=== PATIENT | female | born 1935 | race Caucasian/White ===

== ENCOUNTER 2017-08-16 02:59 | Inpatient (IN) ==
[2017-08-16] MEDS ORDERED: Azithromycin 500 MG in D5% in Water 250 ML IVPB ONE (03:02)
[2017-08-16] MEDS ORDERED: Ipratropium/Albuterol Neb 3 ML IH ONE (03:02)
[2017-08-16] MEDS ORDERED: methylPREDNISolone 125 MG/2 ML VIAL IVP ONE (03:02)
--- NOTE | 2017-08-16 03:04 | Emergency Department Note ---
Disposition Clinical Impression: Acute exacerbation of chronic obstructive airways disease, Congestive heart failure, Anemia, Hyponatremia, CKD (chronic kidney disease) Disposition: Admitted As Inpatient Condition: Fair Time of Disposition: 04:12 SOB HPI - General Stated Complaint: Difficulty Breathing Time Seen by Provider: 08/16/17 03:00 Source: patient, EMS Mode of arrival: EMS Limitations: age Nursing Notes Reviewed: Yes Vital Signs Reviewed: Yes - History of Present Illness Pt Subjective Complaint: shortness of breath Onset (ago): week(s) (2) Context: recent illness Severity: moderate Consistency/Duration: gradually worsening Improves with: nothing Worsens with: exertion, movement Associated symptoms: Reports: cough, wheezing, sputum production. Denies: chest pain, pain with inspiration, fever, orthopnea, lower extremity pain, polyuria, parasthesias, palpitations, hemoptysis, diaphoresis, nausea/vomiting, syncope, abdominal pain, rash, sense of impending doom Treatment prior to arrival: oxygen, bronchodilator Cough present: Yes Cough Description: Weak, Bronchospastic Cough Frequency: Intermittent Sputum production: No Sputum Amount: None Sputum Color: Yellow, Green - Related Data Home Medications Medication Instructions Recorded Confirmed Albuterol Sulfate [Proair Hfa] 2 aerosol .ROUTE Q4H PRN 03/03/15 08/16/17 Aspirin Enteric Coated [Aspirin EC] 81 mg PO DAILY 03/03/15 08/16/17 Cholecalciferol (Vitamin D3) 2,000 unit PO BID 03/03/15 08/16/17 [Vitamin D] Insulin ASPART [NovoLOG] 15 unit SQ BID 03/03/15 08/16/17 Levothyroxine [Synthroid] 75 mcg PO 0630 03/03/15 08/16/17 Losartan [Cozaar] 50 mg PO BID 03/03/15 08/16/17 Nitroglycerin 0.4 mg SL Q5MIN PRN 03/03/15 08/16/17 Oxycodone HCl/Acetaminophen 1 each PO Q6-8H PRN 03/03/15 08/16/17 [Percocet 5-325 mg Tablet] Atorvastatin Calcium [Lipitor] 40 mg PO DAILY 08/12/17 08/16/17 Furosemide [Lasix] 40 mg PO BID 08/12/17 08/16/17 Hydralazine HCl 25 mg PO TID 08/12/17 08/16/17 Isosorbide MONOnitrate [Isosorbide 60 mg PO DAILY 08/12/17 08/16/17 Mononitrate ER] Potassium Chloride [K-Tab ER] 20 meq PO TID 08/12/17 08/16/17 Carvedilol [Coreg] 6.25 mg PO BIDWM 08/16/17 08/16/17 Previous Rx's Medication Instructions Recorded Benzonatate [Tessalon] 200 mg PO Q4-6H PRN #30 capsule 08/12/17 Allergies Allergy/AdvReac Type Severity Reaction Status Date / Time acetaminophen [From [place]] Allergy See Verified 08/16/17 03:07 Comments adhesive tape Allergy Blister Verified 08/16/17 03:07 hydrocodone [From [place]] Allergy See Verified 08/16/17 03:07 Comments iron Allergy Hives Verified 08/16/17 03:07 latex Allergy Blister Verified 08/16/17 03:07 Penicillins Allergy Nausea Verified 08/16/17 03:07 Sulfa (Sulfonamide Allergy Nausea Verified 08/16/17 03:07 Antibiotics) zinc Allergy Blister Verified 08/16/17 03:07 All systems ED: reviewed and negative except as stated. Review of Systems: As Per HPI Constitutional: Denies: fever, chills, weakness Eyes: Denies: eye pain, eye discharge, vision change ENT ED: Reports: congestion. Denies: ear pain, throat pain, dental pain, dysphagia, other Cardiovascular: Denies: chest pain, palpitations, dyspnea on exertion Respiratory: Reports: cough, dyspnea, wheezes, sputum production Gastrointestinal: Denies: abdominal pain, nausea, vomiting Genitourinary: Denies: urgency, dysuria, frequency Musculoskeletal: Denies: back pain, neck pain, joint swelling Integumentary: Denies: rash, abrasion, lesions Neurological: Denies: headache, weakness, abnormal gait Psychiatric: Denies: anxiety, depression Endocrine: Denies: fatigue, heat or cold intolerance Hematological/Lymphatic: Denies: easy bleeding Allergic/Immunologic: Denies: facial swelling Past Medical History - Past Medical History Attestation: Yes The following information was validated with the patient. Source: patient, old records reviewed, nursing notes reviewed Medical history: Reports: atrial fibrillation, cancer, cardiomyopathy, CHF, COPD , diabetes, GI bleed, hypertension, myocardial infarction, osteoporosis, thyroid disease, other Surgical history: Reports: cancer surgery, coronary bypass (CABG), hysterectomy , orthopedic, other, other Psychiatric history: Reports: no psych history TOOL ANALYST history: Reports: no TOOL ANALYST history - Social History Smoking Status: Never smoker Smokeless Tobacco Status: No Alcohol use: Reports: none Drug use: Reports: none Course Course Narrative: Seen and examined chest x-ray EKG laboratory data was ordered patient was given additional DuoNeb to see if this would help break her up she still very tight and wheezy anabolic Solu-Medrol were started - Reevaluation(s) Reevaluation #1: Spoke with the patient she agreed with admission for further management to help get her respiratory cleared up but also spoke with Dr. Cantu the hospitalist and he is agreed for admission patient will be transferred to [facility] telemetry services for further care management antibiotics and slight diuresis Vital Signs Temperature 98.1 F 08/16/17 02:59 Pulse Rate 97 08/16/17 02:59 Respiratory Rate 22 08/16/17 02:59 Blood Pressure 160/76 08/16/17 02:59 O2 Sat by Pulse Oximetry 92 08/16/17 02:59 Temperature 98.1 F 08/16/17 02:59 Pulse Rate 93 08/16/17 04:25 Respiratory Rate 20 08/16/17 04:25 Blood Pressure 128/53 08/16/17 04:25 O2 Sat by Pulse Oximetry 92 08/16/17 04:25 Oxygen Delivery Oxygen Delivery Room Air Shortness of Breath/Dyspnea - Differential Diagnosis Likely: acute exacerbation of chronic obstructive airways disease, congestive heart failure, pneumonia, asthma with exacerbation - Medical Records Medical records reviewed: Yes I reviewed the patient's medical records. - Lab Data Lab results reviewed: Yes I reviewed the patient's lab results. Result diagrams: 08/16/17 03:40 08/16/17 03:40 Lab Results 08/16/17 08/16/17 08/16/17 Range/Units 03:40 03:40 03:40 WBC 6.3 (4.3-11.1) K/mcL RBC 3.24 L (3.82-4.97) M/mcL Hgb 8.8 L (11.5-15.4) g/dL Hct 28.2 L (35.3-44.9) % MCV 87.0 (83.0-100.0) fL MCH 27.2 L (28.0-33.3) pg MCHC 31.2 L (31.6-35.5) g/dL RDW 14.5 (11.5-14.5) % Plt Count 299 (140-400) K/mcL MPV 9.6 (9.4-12.4) fL Immature Gran % 1.1 (0-4) % Seg Neutrophils % 72.9 % Lymphocytes % 14.5 % Monocytes % 6.1 % Eosinophils % 4.9 % Basophils % 0.5 % Neutrophils # 4.6 (1.6-8.9) K/mcL Lymphocytes # 0.9 (0.6-4.6) K/mcL Monocytes # 0.4 (0.0-1.3) K/mcL Eosinophils # 0.3 (0.0-0.6) K/mcL Basophils # 0.0 (0.0-0.2) K/mcL PT (9.4-12.1) Seconds INR APTT 31.4 (26.0-36.0) Seconds Sodium (136-145) mEq/L Potassium (3.5-5.1) mEq/L Chloride (98-107) mEq/L Carbon Dioxide (23-29) mEq/L BUN (8-23) mg/dL Creatinine (0.60-1.20) mg/dL Est GFR ( Amer) (> 60) Est GFR (Non-Af Amer) (> 60) BUN/Creatinine Ratio (6-26) Glucose (70-105) mg/dL Calculated Osmolality (280-300) Lactic Acid (0.5-2.2) mmol/L Calcium (8.6-10.3) mg/dL Total Bilirubin (0.3-1.0) mg/dL AST (13-39) Units/L ALT (7-52) Units/L Alkaline Phosphatase (34-104) Units/L Troponin I (< 0.04) ng/mL B-Natriuretic Peptide 232 H (Less than 100) pg/mL Serum Total Protein (6.4-8.9) g/dL Albumin (3.5-5.7) g/dL Globulin (2.4-3.5) g/dL Albumin/Globulin Ratio (1.1-2.2) 08/16/17 08/16/17 08/16/17 Range/Units 03:40 03:40 03:40 WBC (4.3-11.1) K/mcL RBC (3.82-4.97) M/mcL Hgb (11.5-15.4) g/dL Hct (35.3-44.9) % MCV (83.0-100.0) fL MCH (28.0-33.3) pg MCHC (31.6-35.5) g/dL RDW (11.5-14.5) % Plt Count (140-400) K/mcL MPV (9.4-12.4) fL Immature Gran % (0-4) % Seg Neutrophils % % Lymphocytes % % Monocytes % % Eosinophils % % Basophils % % Neutrophils # (1.6-8.9) K/mcL Lymphocytes # (0.6-4.6) K/mcL Monocytes # (0.0-1.3) K/mcL Eosinophils # (0.0-0.6) K/mcL Basophils # (0.0-0.2) K/mcL PT 12.1 (9.4-12.1) Seconds INR 1.1 APTT (26.0-36.0) Seconds Sodium 129 L (136-145) mEq/L Potassium 4.1 (3.5-5.1) mEq/L Chloride 93 L (98-107) mEq/L Carbon Dioxide 27 (23-29) mEq/L BUN 32 H (8-23) mg/dL Creatinine 2.33 H (0.60-1.20) mg/dL Est GFR ( Amer) 24 L (> 60) Est GFR (Non-Af Amer) 20 L (> 60) BUN/Creatinine Ratio 14 (6-26) Glucose 217 H (70-105) mg/dL Calculated Osmolality 281 (280-300) Lactic Acid 0.9 (0.5-2.2) mmol/L Calcium 9.1 (8.6-10.3) mg/dL Total Bilirubin 0.4 (0.3-1.0) mg/dL AST 14 (13-39) Units/L ALT 8 (7-52) Units/L Alkaline Phosphatase 80 (34-104) Units/L Troponin I 0.03 (< 0.04) ng/mL B-Natriuretic Peptide (Less than 100) pg/mL Serum Total Protein 6.8 (6.4-8.9) g/dL Albumin 3.6 (3.5-5.7) g/dL Globulin 3.2 (2.4-3.5) g/dL Albumin/Globulin Ratio 1.1 (1.1-2.2) - Radiology Data Radiology results reviewed: Yes I reviewed the patient's radiology results. ITS Impressions Chest X-Ray 08/16/17 03:01 IMPRESSION: 1. Cardiomegaly with vascular congestion. D/ / Rod Grimaldo MD / Rod Grimaldo MD Interpreting Provider: Rod Grimaldo MD - EKG Data EKG attestation: Yes I reviewed and interpreted this EKG. EKG results narrative: Sinus rhythm with first-degree AV block RI to 24 rate 89 QRS 168 QT 411 since - 79 Critical Care Time Critical Care Time: No
[2017-08-16] MEDS ORDERED: 0.9 % Sodium Chloride 1,000 ML IVC SCH (03:15)
[2017-08-16 03:47] LABS: Basophils % 0.5 %; Eosinophils # 0.3 K/mcL (0.0-0.6); Eosinophils % 4.9 %; Hematocrit 28.2 % (35.3-44.9); Immature Granulocytes % 1.1 % (0-4); Lymphocytes # 0.9 K/mcL (0.6-4.6); Lymphocytes % 14.5 %; Mean Corpuscular HGB Conc 31.2 g/dL (31.6-35.5); Mean Corpuscular Hemoglobin 27.2 pg (28.0-33.3); Mean Platelet Volume 9.6 fL (9.4-12.4); Monocytes # 0.4 K/mcL (0.0-1.3); Monocytes % 6.1 %; Neutrophils # 4.6 K/mcL (1.6-8.9); Platelet Count 299 K/mcL (140-400); Red Blood Count 3.24 M/mcL (3.82-4.97); Red Cell Distribution Width 14.5 % (11.5-14.5); Segmented Neutrophils % 72.9 %
[2017-08-16 03:49] LABS: INR 1.1; Prothrombin Time 12.1 Seconds (9.4-12.1)
[2017-08-16 03:51] LABS: Hemoglobin 8.8 g/dL (11.5-15.4)
[2017-08-16] MEDS ORDERED: Bumetanide 1 MG/4 ML VIAL IVP ONE (03:54)
[2017-08-16 04:04] LABS: Troponin I 0.03 ng/mL (< 0.04)
[2017-08-16 04:05] LABS: Albumin 3.6 g/dL (3.5-5.7); Albumin/Globulin Ratio 1.1 (1.1-2.2); Bilirubin,Total 0.4 mg/dL (0.3-1.0); Calcium 9.1 mg/dL (8.6-10.3); Globulin 3.2 g/dL (2.4-3.5); Potassium 4.1 mEq/L (3.5-5.1); Total Protein 6.8 g/dL (6.4-8.9)
[2017-08-16] MEDS ORDERED: *HR* OxyCODONE/APAP 5/325 TABLET PO ONE (04:19)
[2017-08-16 05:47] LABS: Bilirubin,Urine Negative (Negative); Blood,Urine Negative (Negative); Clarity,Urine Slightly Cloudy (Clear); Color,Urine Yellow (Yellow); Glucose,Urine (UA) Normal (Normal); Ketones,Urine Negative (Negative); Leukocyte Esterase,Urine Moderate (Negative); Nitrite,Urine Negative (Negative); PH,Urine 6.5 pH Units (5.0-8.0); Protein,Urine Trace mg/dL (Neg-Trace); Urobilinogen,Urine Normal (Normal)
[2017-08-16 05:48] LABS: Bacteria,Urine Few per hpf (None-Few); Hyaline Casts,Urine Few per lpf (None-Few); Squamous Epithelial Cell,Urine Few per lpf (None-Few)
[2017-08-16] MEDS ORDERED: Nitroglycerin 0.4 MG TAB.SUBL SL PRN (05:48)
[2017-08-16] MEDS ORDERED: Albuterol 2.5 MG/3 ML NEBULIZER IH PRN (05:48)
[2017-08-16] MEDS ORDERED: Naloxone 0.4 MG/ML INJ IVP PRN (05:48)
[2017-08-16] MEDS: Ipratropium/Albuterol Neb 3 ML IH SCH ×4 (07:01→22:25)
[2017-08-16] MEDS ORDERED: cloNIDine HCl 0.1 MG TABLET PO PRN (07:36)
[2017-08-16] MEDS ORDERED: INSULIN ASPART 15 UNIT SQ SCH (09:00)
[2017-08-16] MEDS: Furosemide 40 MG TABLET PO SCH ×2 (09:38→17:41)
[2017-08-16] MEDS: hydrALAZINE 25 MG TABLET PO SCH ×3 (09:38→22:23)
[2017-08-16] MEDS: Isosorbide MONOnitrate (24 HR) 60 MG TAB.ER.24H PO SCH (09:39)
[2017-08-16] MEDS: Cholecalciferol (D-3) 1,000 UNIT TABLET PO SCH ×2 (09:39→22:24)
[2017-08-16] MEDS: Aspirin Enteric Coated 81 MG Tablet PO SCH (09:40)
[2017-08-16] MEDS: Insulin LISPRO 300 UNITS/3 ML VIAL SQ SCH (09:46)
[2017-08-16] MEDS: *HR* OxyCODONE/APAP 5/325 TABLET PO PRN ×2 (10:55→22:25)
--- NOTE | 2017-08-16 11:16 | Internal Med History&Physical ---
Date of Encounter: 08/16/17 Time of Encounter: 07:45 Assessment and Plan (1) Acute exacerbation of chronic obstructive airways disease Current visit: Yes Status: Acute This is complicated by congestive heart failure. It sounds as if she might have had sinusitis which turned into bronchitis and/or a COPD exacerbation. Will treat her with azithromycin and Rocephin as begun in the emergency department as well as IV steroids. Will follow for another day in determine how long she needs inpatient observation. (2) Congestive heart failure Current visit: Yes Status: Acute Clinically, this is mild. We will follow and will obtain an echocardiogram to see FEF and pressures are similar. Qualifiers: Heart failure type: unspecified Heart failure chronicity: chronic Qualified Code(s): I50.9 - Heart failure, unspecified (3) CKD (chronic kidney disease) Current visit: Yes Status: Acute Apparently stable. We will follow. Qualifiers: Chronic kidney disease stage: unspecified stage Qualified Code(s): N18.9 - Chronic kidney disease, unspecified (4) Anemia Current visit: Yes Status: Acute Apparently chronic. Will follow. Probably secondary to her chronic kidney disease. Qualifiers: Anemia type: due to chronic kidney disease Chronic kidney disease stage: unspecified stage Qualified Code(s): N18.9 - Chronic kidney disease, unspecified; D63.1 - Anemia in chronic kidney disease; D63.1 - Anemia in chronic kidney disease (5) Right upper quadrant abdominal pain Current visit: Yes Status: Acute Gallbladder sludge and stones without cholecystitis. She is awaiting cardiac clearance before she can undergo cholecystectomy. Will follow clinically and enzymes. (6) Constipation Current visit: Yes Status: Acute Chronic. Will keep her on a bowel regimen. Qualifiers: Constipation type: slow transit constipation Qualified Code(s): K59.01 - Slow transit constipation Internal Medicine - H&P: HPI Chief complaint: Shortness of breath Admitted From: Home Plans for Post Hospital Care: Home History of present illness: Ms. Crump is a 81 year old female with a history of atrial fibrillation, coronary artery disease, congestive heart failure. She was in her usual state of health until 2 weeks ago. At that point, she developed a runny nose, sinus congestion, postnasal drip, cough, and increasing shortness of breath. Also at that time, she had an evening with rather severe chest pressure for which she took nitroglycerin 2 and it relieved. Since then, the cough is progressively increased in her drainage has persisted but the cough has become productive of yellow-green phlegm. She is developed more dyspnea on exertion and has had some dyspnea rest. Finally, last evening, she had shortness of breath, even at rest. She was so uncomfortable that she asked to be brought to the emergency room because of her breathing. She has COPD and takes medications and inhalers for same but does not use home oxygen. She had pulmonary functions in June of this year which revealed a worsening DLCO. For this reason, amiodarone was discontinued. She is noted to have thyroid dysfunction but is not certain as to whether or not this relates to amiodarone. She had CABG 3 about 2 years ago. She had her most recent echocardiogram in 2014 which revealed an ejection fraction of 40-45% with LV dilatation and moderately enlarged left atrium. There was moderate mitral regurgitation and [id number] tricuspid regurgitation with moderate pulmonary hypertension. She has chronic low back pain but recently has developed mid back pain and abdominal pain. By CAT scan, she was found to have biliary stones and sludge and she is felt to need her gallbladder removed. However, she is waiting until Dr. Anh will clear her from a cardiology standpoint before she can undergo surgery. By plain films, she was found to have osteoporosis and increased kyphosis of the thoracic spine. She is taking pain meds on a consistent basis because of the back and right upper quadrant abdominal pain. She often has chills but no sweats. The chills preceded her current illness and she believes they are related to her postmenopausal situation. She is status post right mastectomy for breast cancer, 16 years ago. She is known to have chronic kidney disease which is mild, per her. She had harvesting of saphenous vein grafts 3 from her left lower extremity and this is left her with chronic edema. Review of systems is remarkable for having no upper teeth and lower teeth are in poor repair. She is hard of hearing without hearing aids. She is chronically constipated and that has been stable throughout the current illness. Past Med Surg Social Fam HX - Past Medical History Medical history: atrial fibrillation, cancer, cardiomyopathy, CHF, COPD, diabetes, GI bleed, hypertension, myocardial infarction, osteoporosis, RA, renal disease, thyroid disease, other Psychiatric history: no psych history - Past Surgical History Surgical History: cancer surgery, coronary bypass (CABG), hysterectomy, orthopedic, other, other - Social History Smoking Status: Never smoker Smokeless Tobacco Status: No Alcohol use: none Drug use: none - Family History Father Living Status: Hx Family Cardiac Disorders: Yes Mother Living Status: Hx Family Cardiac Disorders: Yes Brother Living Status: Hx Family Cancer: Yes Internal Medicine - H&P: Meds Albuterol Sulfate [Proair Hfa] 2 aerosol .ROUTE Q4H PRN 03/03/15 [History] Aspirin Enteric Coated [Aspirin EC] 81 mg PO DAILY 03/03/15 [History] Cholecalciferol (Vitamin D3) [Vitamin D] 2,000 unit PO BID 03/03/15 [History] Insulin ASPART [NovoLOG] 15 unit SQ BID 03/03/15 [History] Levothyroxine [Synthroid] 75 mcg PO 0630 03/03/15 [History] Losartan [Cozaar] 50 mg PO BID 03/03/15 [History] Nitroglycerin 0.4 mg SL Q5MIN PRN 03/03/15 [History] Oxycodone HCl/Acetaminophen [Percocet 5-325 mg Tablet] 1 each PO Q6-8H PRN 03/03 [History] Atorvastatin Calcium [Lipitor] 40 mg PO DAILY 08/12/17 [History] Benzonatate [Tessalon] 200 mg PO Q4-6H PRN #30 capsule 08/12/17 [Rx] Furosemide [Lasix] 40 mg PO BID 08/12/17 [History] Hydralazine HCl 25 mg PO TID 08/12/17 [History] Isosorbide MONOnitrate [Isosorbide Mononitrate ER] 60 mg PO DAILY 08/12/17 [ History] Potassium Chloride [K-Tab ER] 20 meq PO TID 08/12/17 [History] ALPRAZolam [Xanax 0.5 MG Tablet] 08/16/17 [History] Carvedilol [Coreg] 6.25 mg PO BIDWM 08/16/17 [History] OxyCODONE/APAP 5/325 [Percocet 5/325 MG] 08/16/17 [History] 3 Allergy/AdvReac Type Severity Reaction Status Date / Time acetaminophen [From [place]] Allergy See Verified 08/16/17 03:07 Comments adhesive tape Allergy Blister Verified 08/16/17 03:07 hydrocodone [From [place]] Allergy See Verified 08/16/17 03:07 Comments iron Allergy Hives Verified 08/16/17 03:07 latex Allergy Blister Verified 08/16/17 03:07 Penicillins Allergy Nausea Verified 08/16/17 03:07 Sulfa (Sulfonamide Allergy Nausea Verified 08/16/17 03:07 Antibiotics) zinc Allergy Blister Verified 08/16/17 03:07 All Systems PM: A 10-system review of systems was performed and is negative for pertinent findings except as documented above in the HPI. Patient has no complaint of chest discomfort, dyspnea, orthopnea, palpitations, nausea or vomiting, constipation or diarrhea, other changes in bowel habits, difficulty with urination, rash or itching, or other new complaints, except as mentioned above. Review of systems is otherwise unremarkable. - Constitutional Vitals: Temp Pulse Resp BP Pulse Ox 97.4 F L 79 15 175/64 93 08/16/17 07:20 08/16/17 07:20 08/16/17 07:20 08/16/17 07:20 08/16/17 07:20 Exam: Examination: (Except as mentioned above): General: In no apparent distress, alert and oriented 3. Head: Atraumatic and normocephalic. Eyes: Extraocular muscles are intact, pupils equal round and reactive to light and accommodation. Sclerae are anicteric. Ears: External ears are normal to inspection and hearing is grossly normal. Nose: Patent without lesion noted. Mouth: No intraoral lesions seen. Dentition is poor at the mandible and she has no maxillary teeth. Neck: Supple with trachea midline. There is no thyromegaly or adenopathy and carotids are 2+ without bruit heard. Respiratory: No use of accessory muscles. She has diffuse sonorous rhonchi with occasional wheeze. Normal airflow without prolongation of expiratory phase. Cardiovascular: Regular rate and rhythm except for ectopic beats, about 1 out of 4-6. She is without murmur appreciated. Abdomen: Bowel sounds are normal. No hepatosplenomegaly masses or tenderness. Obese and therefore difficult to palpate deeply. Patient is examined upright in chair and this also limits exam. Extremities: No cyanosis or clubbing but she does have left lower extremity edema which is mildly pitting, probably 1+ through the entire calf and ankle. No signs of cellulitis. Neurological: A and O 3. Cranial nerves II through XII are intact. No focal deficits and no abnormal movements or postures. Skin: Warm and non-diaphoretic with no lesions noted. Breasts, pelvic and rectal: Not examined. Internal Med - H&P Results - Labs CBC & Chem 7: 08/16/17 03:40 08/16/17 03:40 Labs: Cardiac Enzymes 08/16/17 Range/Units 09:15 Troponin I < 0.03 (< 0.04) ng/mL Urine 08/16/17 Range/Units 05:40 Urine Color Yellow (Yellow) Urine Clarity Slightly Cloudy A (Clear) Urine pH 6.5 (5.0-8.0) pH Units Ur Specific [place] 1.010 (1.010-1.025) Urine Protein Trace (Neg-Trace) mg/dL Urine Glucose (UA) Normal (Normal) mg/dL
[2017-08-16] MEDS ORDERED: Bisacodyl 10 MG RECTAL SUPPOSITORY RC PRN (11:54)
[2017-08-16] MEDS: methylPREDNISolone 125 MG/2 ML VIAL IVP SCH (17:42)
[2017-08-16] MEDS ORDERED: Insulin LISPRO 300 UNITS/3 ML VIAL SQ SCH (21:00)
[2017-08-16] MEDS ORDERED: Insulin DETEMIR 100 UNIT/ML per UNIT SQ ONE (21:00)
[2017-08-16] MEDS ORDERED: Insulin DETEMIR 100 UNIT/ML per UNIT SQ SCH (22:00)
[2017-08-16] MEDS: ALPRAZolam 0.5 MG TABLET PO PRN (22:24)
[2017-08-17] MEDS: methylPREDNISolone 125 MG/2 ML VIAL IVP SCH ×4 (01:00→23:47)
[2017-08-17] MEDS: Azithromycin 500 MG in D5% in Water 250 ML IVPB SCH (06:22)
[2017-08-17] MEDS: Ipratropium/Albuterol Neb 3 ML IH SCH ×4 (06:23→20:52)
[2017-08-17 06:36] LABS: Basophils % 0.1 %; Hematocrit 25.4 % (35.3-44.9); Hemoglobin 8.2 g/dL (11.5-15.4); Immature Granulocytes % 0.9 % (0-4); Lymphocytes # 0.5 K/mcL (0.6-4.6); Lymphocytes % 6.1 %; Mean Corpuscular HGB Conc 32.3 g/dL (31.6-35.5); Mean Corpuscular Hemoglobin 27.6 pg (28.0-33.3); Mean Corpuscular Volume 85.5 fL (83.0-100.0); Mean Platelet Volume 9.6 fL (9.4-12.4); Monocytes # 0.1 K/mcL (0.0-1.3); Monocytes % 1.1 %; Neutrophils # 6.8 K/mcL (1.6-8.9); Platelet Count 301 K/mcL (140-400); Red Blood Count 2.97 M/mcL (3.82-4.97); Red Cell Distribution Width 14.4 % (11.5-14.5); Segmented Neutrophils % 91.8 %
[2017-08-17 06:53] LABS: Albumin 3.4 g/dL (3.5-5.7); Albumin/Globulin Ratio 1.1 (1.1-2.2); Bilirubin,Total 0.3 mg/dL (0.3-1.0); Calcium 9.3 mg/dL (8.6-10.3); Globulin 3.1 g/dL (2.4-3.5); Potassium 3.9 mEq/L (3.5-5.1); Total Protein 6.5 g/dL (6.4-8.9)
[2017-08-17] MEDS: hydrALAZINE 25 MG TABLET PO SCH ×3 (09:03→20:46)
[2017-08-17] MEDS: Cholecalciferol (D-3) 1,000 UNIT TABLET PO SCH ×2 (09:03→20:46)
[2017-08-17] MEDS: Isosorbide MONOnitrate (24 HR) 60 MG TAB.ER.24H PO SCH (09:04)
[2017-08-17] MEDS: Furosemide 40 MG TABLET PO SCH ×2 (09:04→16:10)
[2017-08-17] MEDS: Aspirin Enteric Coated 81 MG Tablet PO SCH (09:04)
[2017-08-17] MEDS: cefTRIAXone 1,000 MG in Water for inj. (sterile) 20 ML 10 ML IVP SCH (09:06)
[2017-08-17] MEDS: Insulin LISPRO 300 UNITS/3 ML VIAL SQ SCH ×3 (09:07→20:52)
[2017-08-17] MEDS: *HR* OxyCODONE/APAP 5/325 TABLET PO PRN ×3 (09:31→20:51)
[2017-08-17] MEDS ORDERED: D5% in Water 1,000 ML IVC PRN (13:00)
[2017-08-17] MEDS ORDERED: *HR* Dextrose 50 % in Water (Syg) 50 ML SYRINGE IVP PRN (13:00)
[2017-08-17] MEDS ORDERED: Dextrose Gel 15 GM PO PRN ×2 (13:00)
--- NOTE | 2017-08-17 17:03 | Electrocardiograph Report ---
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
--- NOTE | 2017-08-17 17:07 | Internal Med Progress Note ---
Date of Encounter: 08/17/17 Time of Encounter: 17:04 - Assessment and plan (1) COPD with exacerbation Current Visit: Yes Status: Acute Assessment and plan: Patient currently continues with complaints of slight dyspnea while at rest. Patient noted to have rhonchi to upper young and diminished bases. Patient currently on antibiotics for bronchitis. No hypoxia with saturation greater than 90%. Respiratory effort appears relaxed during exam. We will continue with current plan of care. Patient to be converted from observation to admission. (2) Diabetes Current Visit: Yes Status: Acute Assessment and plan: No acute issues. Patient continues to be monitored with fingersticks and cover with SSI. Will evaluate patient's home coverage. Qualifiers: Diabetes mellitus type: type 2 Diabetes mellitus termite technician insulin use: with termite technician use Diabetes mellitus complication status: with other specified complication Qualified Code(s): E11.69 - Type 2 diabetes mellitus with other specified complication; Z79.4 - [facility]DC (current) use of insulin; Z79.4 - termite technician (current) use of insulin; Z79.4 - [facility]DC (current) use of insulin; Z79.4 - termite technician (current) use of insulin (3) CKD (chronic kidney disease) Current Visit: Yes Status: Chronic Assessment and plan: No acute issues. Patient's creatinine on admission was 1.99. We will continue to monitor Qualifiers: Chronic kidney disease stage: unspecified stage Qualified Code(s): N18.9 - Chronic kidney disease, unspecified - Time Spent With Patient less than 15 minutes - Subjective Interval history: Patient appears relaxed but continues to complain of slight dyspnea and productive cough. Patient states that she has had a small amount of yellow type sputum received. She noted to be somewhat anxious and escalates when questioned about her symptoms. Patient was admitted through ED last evening with complaints of shortness of breath. Patient states that her breathing is quite a bit better today after receiving antibiotics overnight. - Constitutional Vitals: Temp Pulse Resp BP Pulse Ox 98.0 F 88 18 186/92 95 08/17/17 16:00 08/17/17 16:00 08/17/17 16:00 08/17/17 16:00 08/17/17 16:00 General appearance: Present: A&O X 3 - Head Head exam: Present: atraumatic, normocephalic - Eye Eye exam: Present: PERRL, conjuntiva pink, sclera anicteric Pupils: Present: PERRL - Neck Neck exam general surgery: Present: supple, trachea midline. Absent: lymphadenopathy - Respiratory Respiratory exam: Present: CTAB. Absent: accessory muscle use, rales, rhonchi, wheezes Additional comments: Patient noted to have scattered rhonchi to upper young and diminished breath sounds to posterior basilar young - Cardiovascular Cardiovascular exam: Present: RRR, +S1, +S2. Absent: diastolic murmur, gallop, rubs, systolic murmur Additional comments: Systolic murmur, 3/6 - GI/Abdominal GI/Abdominal exam: Present: normal bowel sounds, soft, no peritoneal signs. Absent: distended, tenderness - Extremities Exam Extremities exam: Present: warm, radial pulses palpable and symmetrical. Absent : calf tenderness, cyanotic, pedal edema - Neurological Exam Neurological exam: Present: CN II-XII intact, oriented X3, no focal deficits. Absent: pronater drift, facial droop, speech deficit - Psychiatric Psychiatric exam: Present: anxious Additional comments: Patient noted to become somewhat anxious when she was describing her symptoms that she experienced at time of admission - Skin Skin exam: Present: dry, intact Internal Medicine: Result - Labs CBC & Chem 7: 08/17/17 06:20 08/17/17 06:20 Labs: Short CBC 08/17/17 Range/Units 06:20 WBC 7.4 (4.3-11.1) K/mcL Hgb 8.2 L (11.5-15.4) g/dL Hct 25.4 L (35.3-44.9) % Plt Count 301 (140-400) K/mcL Neutrophils # 6.8 (1.6-8.9) K/mcL BMP 08/17/17 06:20 Sodium 131 L Potassium 3.9 Chloride 94 L Carbon Dioxide 28 BUN 31 H Creatinine 1.99 H Glucose 271 H Calcium 9.3 Liver Function 08/17/17 Range/Units 06:20 Total Bilirubin 0.3 (0.3-1.0) mg/dL AST 13 (13-39) Units/L ALT 7 (7-52) Units/L Alkaline Phosphatase 71 (34-104) Units/L Albumin 3.4 L (3.5-5.7) g/dL - ABG Interpretation ABG results: PT/INR, D-dimer PT 12.1 Seconds (9.4-12.1) 08/16/17 03:40 - Impressions Impressions Echocardiogram 08/16/17 09:47 Impressions: LVEF 40%. Atypical septal motion consistent with post-operative status. Mild to moderately dilated left ventricle. Indeterminate diastolic function. Normal right ventricular structure and function. Severely dilated left atrium. Mild-moderate mitral regurgitation. Moderate tricuspid regurgitation. Mild pulmonic regurgitation. At least moderate pulmonary hypertension by TR gradient. IVC is not well visualized. Left Ventricular Wall Motion: Rest Echo Findings The apex, apical inferior, mid inferior, basal inferior, apical anterior, mid anterior, basal anterior, apical septal, mid inferior septal, basal inferior septal, apical lateral, mid anterior lateral, basal anterior lateral, mid anterior septal, mid inferior lateral, basal anterior septal and basal inferior lateral alas were hypokinetic. Findings: Study Quality * Technically adequate exam. ECG Findings * Normal sinus rhythm. Left Ventricle * Atypical septal motion consistent with post-operative status. * Mild to moderately dilated left ventricle. * LVEF 40%. * Indeterminate diastolic function. Right Ventricle * Normal right ventricular structure and function. Left Atrium * Severely dilated left atrium. Right Atrium * Normal right atrial size. Aortic Valve * Trileaflet aortic valve. * No aortic stenosis. * Trace aortic regurgitation. Mitral Valve * Mild mitral annular calcification * Mildly thickened mitral valve leaflets. * Mild-moderate mitral regurgitation. * No mitral stenosis. Tricuspid Valve * Normal tricuspid valve structure. * Moderate tricuspid regurgitation. Pulmonic Valve * Pulmonic valve is not well visualized. * No pulmonic stenosis. * Mild pulmonic regurgitation. Pulmonary Artery * Pulmonary artery not well visualized. Aorta * Normally sized aortic root. Pericardium * There is no pericardial effusion present. IVC * The IVC is not well evaluated. Interatrial Septum * Interatrial septum not well evaluated. - VTE Documentation of Mechanical Device: Graduated compression elastic hosiery Consult Discharge Plan - Plan Referrals: Patricia Curtis MD [Primary Care Provider] -
--- NOTE | 2017-08-17 17:09 | Electrocardiograph Report ---
[place] [id number] Test Date: 2017-08-16 Pat Name: Cece Crump Department: 2000 Room: 115 Gender: F Process Treater: : [id number] Requested By: Salvatore Roberts Order Number: [id number] Reading MD: Hugo John Measurements Intervals [place]ollings Rate: 89 P: 78 NV: 224 QRS: -79 QRSD: 168 T: 28 QT: 411 QTc: 458 Interpretive Statements SINUS RHYTHM WITH FIRST DEGREE AV BLOCK MARKED LEFT AXIS DEVIATION INTRAVENTRICULAR CONDUCTION DELAY Electronically Signed On 08-17-2017 17:07:42 EDT by Hugo John
[2017-08-18] MEDS: *HR* OxyCODONE/APAP 5/325 TABLET PO PRN ×5 (02:26→23:12)
[2017-08-18] MEDS: ALPRAZolam 0.5 MG TABLET PO PRN (04:21)
[2017-08-18] MEDS: Ipratropium/Albuterol Neb 3 ML IH SCH ×4 (04:21→23:15)
[2017-08-18] MEDS: Azithromycin 500 MG in D5% in Water 250 ML IVPB SCH (04:21)
[2017-08-18] MEDS: Furosemide 40 MG TABLET PO SCH ×2 (08:17→17:25)
[2017-08-18] MEDS: hydrALAZINE 25 MG TABLET PO SCH ×3 (08:17→23:11)
[2017-08-18] MEDS: Insulin LISPRO 300 UNITS/3 ML VIAL SQ SCH ×4 (08:17→23:15)
[2017-08-18] MEDS: Cholecalciferol (D-3) 1,000 UNIT TABLET PO SCH ×2 (08:17→23:12)
[2017-08-18] MEDS: Aspirin Enteric Coated 81 MG Tablet PO SCH (08:17)
[2017-08-18] MEDS: Isosorbide MONOnitrate (24 HR) 60 MG TAB.ER.24H PO SCH (08:17)
[2017-08-18] MEDS: cefTRIAXone 1,000 MG in Water for inj. (sterile) 20 ML 10 ML IVP SCH (08:18)
[2017-08-18] MEDS: methylPREDNISolone 125 MG/2 ML VIAL IVP SCH ×3 (08:19→23:14)
--- NOTE | 2017-08-18 14:42 | Internal Med Progress Note ---
Date of Encounter: 08/18/17 Time of Encounter: 14:35 - Assessment and plan (1) COPD with exacerbation Current Visit: Yes Status: Acute Assessment and plan: Patient currently continues with complaints of slight dyspnea while at rest. Patient noted to have rhonchi to upper young and rales to bases. Patient currently on antibiotics and cortical steroids for bronchitis. No hypoxia with saturation greater than 90%. Respiratory effort appears relaxed during exam. We will continue with current plan of care. Patient being prepared for possible DC to SNF in the next few days. (2) Diabetes Current Visit: Yes Status: Acute Assessment and plan: No acute issues. Patient continues to elevated glucose on fingersticks and cover with SSI. Glucose elevation likely secondary to steroid use. Will evaluate patient's home coverage and continue on SSI. Qualifiers: Diabetes mellitus type: type 2 Diabetes mellitus termite exterminator insulin use: with termite exterminator use Diabetes mellitus complication status: with other specified complication Qualified Code(s): E11.69 - Type 2 diabetes mellitus with other specified complication; Z79.4 - long term care phlebotomist (current) use of insulin; Z79.4 - long term care phlebotomist (current) use of insulin; Z79.4 - long term care phlebotomist (current) use of insulin; Z79.4 - long term care phlebotomist (current) use of insulin (3) CKD (chronic kidney disease) Current Visit: Yes Status: Chronic Assessment and plan: No acute issues. Patient's last creatinine on admission was 1.99. We will continue to monitor Qualifiers: Chronic kidney disease stage: unspecified stage Qualified Code(s): N18.9 - Chronic kidney disease, unspecified - Time Spent With Patient less than 15 minutes - Subjective Interval history: Patient appears relaxed but continues to complain of slight dyspnea and productive cough. Pt states that this morning she had a coughing spell and experienced dyspnea, but appears relaxed at time of exam. Pt noted to easily become anxious when discussing her health issues and progress. Pt states that she feels that her pulmonary status has been improving since her admission. Pt also c/o pain to her mid-back during coughing. Pt denies any chest discomforts or palpitations. - Constitutional Vitals: Temp Pulse Resp BP Pulse Ox 97.3 F L 78 16 151/66 94 08/18/17 08:00 08/18/17 12:00 08/18/17 12:00 08/18/17 12:00 08/18/17 12:00 General appearance: Present: A&O X 3, pleasant - Head Head exam: Present: atraumatic, normocephalic - Eye Eye exam: Present: PERRL, conjuntiva pink, sclera anicteric Pupils: Present: PERRL - Neck Neck exam general surgery: Present: supple, trachea midline. Absent: lymphadenopathy - Respiratory Respiratory exam: Present: CTAB, rales, rhonchi. Absent: accessory muscle use, wheezes Additional comments: Patient noted to have rhonchi heard to her upper bronchial young and coarse rales heard to the posterior basilar young. No rubs heard. Resp effort appears relaxed. - Cardiovascular Cardiovascular exam: Present: RRR, +S1, +S2. Absent: diastolic murmur, gallop, rubs, systolic murmur - GI/Abdominal GI/Abdominal exam: Present: normal bowel sounds, soft, no peritoneal signs. Absent: distended, tenderness - Extremities Exam Extremities exam: Present: warm, radial pulses palpable and symmetrical. Absent : calf tenderness, cyanotic, pedal edema - Neurological Exam Neurological exam: Present: CN II-XII intact, oriented X3, no focal deficits. Absent: pronater drift, facial droop, speech deficit - Psychiatric Psychiatric exam: Present: anxious Additional comments: Pt noted to be at times very anxious when she discusses her current health issues and prognosis. - Skin Skin exam: Present: dry, intact Internal Medicine: Result - Labs CBC & Chem 7: 08/17/17 06:20 08/17/17 06:20 - ABG Interpretation ABG results: PT/INR, D-dimer PT 12.1 Seconds (9.4-12.1) 08/16/17 03:40 - VTE Documentation of Mechanical Device: Graduated compression elastic hosiery Consult Discharge Plan - Plan Referrals: Patricia Curtis MD [Primary Care Provider] -
[2017-08-18] MEDS ORDERED: Benzonatate 100 MG CAPSULE PO PRN (14:44)
[2017-08-18] MEDS ORDERED: Bisacodyl 10 MG RECTAL SUPPOSITORY RC PRN (14:45)
[2017-08-19] MEDS: ALPRAZolam 0.5 MG TABLET PO PRN ×2 (03:03→22:04)
[2017-08-19] MEDS: Ipratropium/Albuterol Neb 3 ML IH SCH ×4 (06:00→22:11)
[2017-08-19] MEDS: Azithromycin 500 MG in D5% in Water 250 ML IVPB SCH (06:33)
[2017-08-19] MEDS: Insulin LISPRO 300 UNITS/3 ML VIAL SQ SCH ×4 (08:26→22:07)
[2017-08-19] MEDS: cefTRIAXone 1,000 MG in Water for inj. (sterile) 20 ML 10 ML IVP SCH (08:27)
[2017-08-19] MEDS: methylPREDNISolone 125 MG/2 ML VIAL IVP SCH ×2 (08:28→17:09)
[2017-08-19] MEDS: Aspirin Enteric Coated 81 MG Tablet PO SCH (08:29)
[2017-08-19] MEDS: *HR* OxyCODONE/APAP 5/325 TABLET PO PRN ×4 (08:29→22:05)
[2017-08-19] MEDS: Isosorbide MONOnitrate (24 HR) 60 MG TAB.ER.24H PO SCH (08:29)
[2017-08-19] MEDS: hydrALAZINE 25 MG TABLET PO SCH ×3 (08:29→22:05)
[2017-08-19] MEDS: Furosemide 40 MG TABLET PO SCH ×2 (08:29→17:09)
[2017-08-19] MEDS: Cholecalciferol (D-3) 1,000 UNIT TABLET PO SCH ×2 (12:27→22:04)
--- NOTE | 2017-08-19 17:18 | Internal Med Progress Note ---
Date of Encounter: 08/19/17 Time of Encounter: 17:14 - Assessment and plan (1) Acute exacerbation of chronic obstructive airways disease Current Visit: Yes Status: Acute Assessment and plan: This is improved and so we will change to oral antibiotics and steroids, as above. (2) Congestive heart failure Current Visit: Yes Status: Acute Assessment and plan: No signs, currently. Qualifiers: Heart failure type: unspecified Heart failure chronicity: chronic Qualified Code(s): I50.9 - Heart failure, unspecified (3) CKD (chronic kidney disease) Current Visit: Yes Status: Chronic Assessment and plan: Clinically stable. We will reassess in a.m., prior to discharge. Qualifiers: Chronic kidney disease stage: unspecified stage Qualified Code(s): N18.9 - Chronic kidney disease, unspecified (4) Anemia Current Visit: Yes Status: Acute Assessment and plan: Clinically stable. We will continue home regimen and follow. Qualifiers: Anemia type: due to chronic kidney disease Chronic kidney disease stage: unspecified stage Qualified Code(s): N18.9 - Chronic kidney disease, unspecified; D63.1 - Anemia in chronic kidney disease; D63.1 - Anemia in chronic kidney disease (5) Right upper quadrant abdominal pain Current Visit: Yes Status: Acute Assessment and plan: As before, she will need to follow up with cardiology to get preoperative clearance in anticipation of cholecystectomy. (6) Constipation Current Visit: Yes Status: Acute Assessment and plan: Resolved. Qualifiers: Constipation type: slow transit constipation Qualified Code(s): K59.01 - Slow transit constipation - Time Spent With Patient 25 - 35 minutes - Subjective Interval history: Patient is feeling better. She states she is coughing less. Her right upper quadrant abdominal pain is nearly resolved and her back pain is improved. She is more active. She has finally had a bowel movement and is having multiple bowel movements, currently. They are not profuse but they are loose. She denies fevers chills or sweats. Given her improvement, we will stop the IV steroids and antibiotics and switch her to oral. We will continue on with the Tessalon as this seems to be helping. We discussed discharge planning, at length. She is felt not to be able to move her care for herself, on her own. Family thinks that she needs to have for reconditioning and rehabilitation. I told her that this is planned, for tomorrow. Patient has no complaint of chest discomfort, dyspnea, orthopnea, palpitations, nausea or vomiting, constipation or diarrhea, other changes in bowel habits, difficulty with urination, rash or itching, or other new complaints, except as mentioned above. Review of systems is otherwise unremarkable. - Constitutional Vitals: Temp Pulse Resp BP Pulse Ox 97.5 F L 78 18 162/65 97 08/19/17 15:00 08/19/17 15:00 08/19/17 15:00 08/19/17 15:00 08/19/17 15:00 General appearance: Present: A&O X 3, pleasant Exam: Examination: (Except as mentioned above): General: In no apparent distress. Alert and oriented 3. Nondiaphoretic. Head: Atraumatic and normocephalic. Respiratory: No use of accessory muscles. Lungs are still with sonorous rhonchi but she has fewer wheezes and no and expiratory wheezes. Normal airflow. Cardiovascular: Regular rate and rhythm without murmur appreciated. Abdomen: Bowel sounds are normal. No hepatosplenomegaly or mass and her right upper quadrant tenderness is much improved. She still has mild left costal marginal tenderness. Obese and therefore difficult to palpate deeply.Patient is examined upright in chair and this also limits exam. Extremities: No cyanosis clubbing or edema. Skin: Warm and non-diaphoretic with no new lesions noted. Internal Medicine: Result - Labs CBC & Chem 7: 08/17/17 06:20 08/17/17 06:20 - ABG Interpretation ABG results: PT/INR, D-dimer PT 12.1 Seconds (9.4-12.1) 08/16/17 03:40 - VTE Documentation of Mechanical Device: Graduated compression elastic hosiery Consult Discharge Plan - Plan Referrals: Patricia Curtis MD [Primary Care Provider] -
--- NOTE | 2017-08-19 18:51 | Discharge Summary ---
Orders not resulted at time of discharge: Pending orders 08/20/17 04:00 Complete Blood Count [HEME] AM 0400 Date of Encounter: 08/20/17 - Discharge Diagnosis (1) Acute exacerbation of chronic obstructive airways disease Priority: Primary Status: Acute (2) Congestive heart failure Priority: Secondary Status: Acute Qualifiers: Heart failure type: unspecified Heart failure chronicity: chronic Qualified Code(s): I50.9 - Heart failure, unspecified (3) CKD (chronic kidney disease) Priority: Secondary Status: Chronic Qualifiers: Chronic kidney disease stage: unspecified stage Qualified Code(s): N18.9 - Chronic kidney disease, unspecified (4) Anemia Priority: Secondary Status: Acute Qualifiers: Anemia type: due to chronic kidney disease Chronic kidney disease stage: unspecified stage Qualified Code(s): N18.9 - Chronic kidney disease, unspecified; D63.1 - Anemia in chronic kidney disease; D63.1 - Anemia in chronic kidney disease (5) Right upper quadrant abdominal pain Priority: Secondary Status: Acute (6) Constipation Priority: Secondary Status: Acute Qualifiers: Constipation type: slow transit constipation Qualified Code(s): K59.01 - Slow transit constipation Hospital course: Ms. Crump is a 81 year old female with a history of chronic low back pain, recent abdominal pain attributed to acute cholecystitis who was awaiting cardiac clearance before cholecystectomy. She developed upper respiratory symptoms with increasing cough, worsening abdominal pain and back pain and was admitted for antibiotics and treatment of cough. Was felt she had an acute exacerbation of COPD which added to her cough and worsened her abdominal pain. She was treated with IV steroids, IV antibiotics, and opioid pain medications. She has not persistent and worsening pain which prevented her participation in activities of daily living and in self-care it was felt by her family that she would benefit from snf facility placement as she is not strong enough to care for herself and her is also advanced age and inability to aid in her care. On the third inpatient day, she is to be transferred to extended care facility for deconditioning and supportive care. She will be seen by Dr. Ahn, social sciences professor, for preoperative evaluation and then will need to go for cholecystectomy, as above. Discharge discussed with: patient, family, nurse - Time Spent with Patient Total time spent providing and/or coordinating discharge services: Greater than 30 minutes - Discharge Medications Home Medications: Albuterol Sulfate [Proair Hfa] 2 aerosol .ROUTE Q4H PRN 03/03/15 [History] Aspirin Enteric Coated [Aspirin EC] 81 mg PO DAILY 03/03/15 [History] Cholecalciferol (Vitamin D3) [Vitamin D] 2,000 unit PO BID 03/03/15 [History] Insulin ASPART [NovoLOG] 15 unit SQ BID 03/03/15 [History] Levothyroxine [Synthroid] 75 mcg PO 0630 03/03/15 [History] Losartan [Cozaar] 50 mg PO BID 03/03/15 [History] Nitroglycerin 0.4 mg SL Q5MIN PRN 03/03/15 [History] Oxycodone HCl/Acetaminophen [Percocet 5-325 mg Tablet] 1 each PO Q6-8H PRN 03/03 [History] Atorvastatin Calcium [Lipitor] 40 mg PO DAILY 08/12/17 [History] Benzonatate [Tessalon] 200 mg PO Q4-6H PRN #30 capsule 08/12/17 [Rx] Furosemide [Lasix] 40 mg PO BID 08/12/17 [History] Hydralazine HCl 25 mg PO TID 08/12/17 [History] Isosorbide MONOnitrate [Isosorbide Mononitrate ER] 60 mg PO DAILY 08/12/17 [ History] Potassium Chloride [K-Tab ER] 20 meq PO TID 08/12/17 [History] ALPRAZolam [Xanax 0.5 MG Tablet] 08/16/17 [History] Carvedilol [Coreg] 6.25 mg PO BIDWM 08/16/17 [History] OxyCODONE/APAP 5/325 [Percocet 5/325 MG] 08/16/17 [History] Allergies/Adverse Reactions: 3 Allergy/AdvReac Type Severity Reaction Status Date / Time acetaminophen [From [place]] Allergy See Verified 08/16/17 03:07 Comments adhesive tape Allergy Blister Verified 08/16/17 03:07 hydrocodone [From [place]] Allergy See Verified 08/16/17 03:07 Comments iron Allergy Hives Verified 08/16/17 03:07 latex Allergy Blister Verified 08/16/17 03:07 Penicillins Allergy Nausea Verified 08/16/17 03:07 Sulfa (Sulfonamide Allergy Nausea Verified 08/16/17 03:07 Antibiotics) zinc Allergy Blister Verified 08/16/17 03:07 Date of admission: 08/17/17 16:57 Primary care physician: Patricia Curtis, Discharging clinician: Salvatore Roberts Anticipated date of discharge: 08/21/17 - Constitutional Vitals: Temp Pulse Resp BP Pulse Ox 97.5 F L 78 18 162/65 97 08/19/17 15:00 08/19/17 15:00 08/19/17 15:00 08/19/17 15:00 08/19/17 15:00 General appearance: Present: pleasant Exam: Examination: (Except as mentioned above): General: In no apparent distress. Alert and oriented 3. Nondiaphoretic. Head: Atraumatic and normocephalic. Respiratory: No use of accessory muscles. Lungs are clear throughout. Normal airflow. Cardiovascular: Regular rate and rhythm without murmur appreciated. Abdomen: Bowel sounds are normal. No hepatosplenomegaly mass or tenderness appreciated. Obese and therefore difficult to palpate deeply. Extremities: No cyanosis clubbing or edema. Skin: Warm and non-diaphoretic with no new lesions noted. - Patient Status Disposition: Transfer SNF Condition: Fair Functional capacity at discharge: independent ambulation Overall status at discharge: patient is not back to baseline - Discharge Instructions Follow Up With: Patricia Curtis MD [Primary Care Provider] - Forms: ED Satisfaction Letter - VTE Documentation of Mechanical Device: Graduated compression elastic hosiery
[2017-08-19] MEDS: cephALEXin 500 MG CAPSULE PO SCH (22:03)
[2017-08-20 05:00] LABS: Hematocrit 27.9 % (35.3-44.9); Hemoglobin 8.9 g/dL (11.5-15.4); Immature Granulocytes % 1.2 % (0-4); Lymphocytes # 0.4 K/mcL (0.6-4.6); Lymphocytes % 4.2 %; Mean Corpuscular HGB Conc 31.9 g/dL (31.6-35.5); Mean Corpuscular Hemoglobin 27.6 pg (28.0-33.3); Mean Corpuscular Volume 86.6 fL (83.0-100.0); Mean Platelet Volume 9.6 fL (9.4-12.4); Monocytes # 0.3 K/mcL (0.0-1.3); Monocytes % 3.4 %; Neutrophils # 7.7 K/mcL (1.6-8.9); Platelet Count 365 K/mcL (140-400); Red Blood Count 3.22 M/mcL (3.82-4.97); Red Cell Distribution Width 14.7 % (11.5-14.5); Segmented Neutrophils % 91.2 %
[2017-08-20] MEDS ORDERED: Furosemide 40 MG/4 ML VIAL IVP ONE (06:26)
[2017-08-20] MEDS ORDERED: Furosemide 40 MG TABLET PO SCH (06:27)
[2017-08-20] MEDS: Ipratropium/Albuterol Neb 3 ML IH SCH ×4 (06:38→21:27)
[2017-08-20] MEDS: *HR* OxyCODONE/APAP 5/325 TABLET PO PRN ×4 (06:41→21:26)
[2017-08-20] MEDS: Azithromycin 500 MG in D5% in Water 250 ML IVPB SCH (06:44)
--- NOTE | 2017-08-20 07:05 | Internal Med Progress Note ---
Date of Encounter: 08/20/17 Time of Encounter: 07:02 - Assessment and plan (1) Acute exacerbation of chronic obstructive airways disease Current Visit: Yes Status: Acute Assessment and plan: We have switched her to oral medications including antibiotics and steroids. However, it seems like she has worsened overnight. For this reason, we will give her a dose of Lasix and check a chest x-ray, follow. (2) Congestive heart failure Current Visit: Yes Status: Acute Assessment and plan: Her B-type natriuretic peptide has increased in her cough has worsened. With this in mind, we will check chest x-ray, as above, and given a dose of IV Lasix , follow.. Qualifiers: Heart failure type: unspecified Heart failure chronicity: chronic Qualified Code(s): I50.9 - Heart failure, unspecified (3) CKD (chronic kidney disease) Current Visit: Yes Status: Chronic Assessment and plan: Clinically stable. Basic metabolic panel is pending.. Qualifiers: Chronic kidney disease stage: unspecified stage Qualified Code(s): N18.9 - Chronic kidney disease, unspecified (4) Anemia Current Visit: Yes Status: Acute Assessment and plan: Clinically stable. We will continue home regimen and follow. Qualifiers: Anemia type: due to chronic kidney disease Chronic kidney disease stage: unspecified stage Qualified Code(s): N18.9 - Chronic kidney disease, unspecified; D63.1 - Anemia in chronic kidney disease; D63.1 - Anemia in chronic kidney disease (5) Right upper quadrant abdominal pain Current Visit: Yes Status: Acute Assessment and plan: Improved but persistent. - Time Spent With Patient 25 - 35 minutes - Subjective Interval history: Patient states that her cough is returning and this makes her short of breath and increases her pain. She has had decrease in the number of bowel movements, overnight, actually only going once. She denies abdominal pain, fevers, chills , sweats, etc. Patient has no complaint of chest discomfort, dyspnea, orthopnea, palpitations, nausea or vomiting, constipation or diarrhea, other changes in bowel habits, difficulty with urination, rash or itching, or other new complaints, except as mentioned above. Review of systems is otherwise unremarkable. - Constitutional Vitals: Temp Pulse Resp BP Pulse Ox 98.1 F 80 18 148/63 95 08/20/17 04:00 08/20/17 04:00 08/20/17 04:00 08/20/17 04:00 08/20/17 04:00 General appearance: Present: pleasant Exam: Examination: (Except as mentioned above): General: In no apparent distress. Alert and oriented 3. Nondiaphoretic. Head: Atraumatic and normocephalic. Respiratory: No use of accessory muscles. She has more sonorous rhonchi and her inexpiratory wheezes have returned.. Normal airflow. Cardiovascular: Regular rate and rhythm without murmur appreciated. Abdomen: Bowel sounds are normal. No hepatosplenomegaly or mass. She has persistent mild right upper quadrant pain and left costal marginal tenderness.. Obese and therefore difficult to palpate deeply. Extremities: No cyanosis clubbing or edema. Skin: Warm and non-diaphoretic with no new lesions noted. Internal Medicine: Result - Labs CBC & Chem 7: 08/20/17 04:17 08/17/17 06:20 Labs: Short CBC 08/20/17 Range/Units 04:17 WBC 8.5 (4.3-11.1) K/mcL Hgb 8.9 L (11.5-15.4) g/dL Hct 27.9 L (35.3-44.9) % Plt Count 365 (140-400) K/mcL Neutrophils # 7.7 (1.6-8.9) K/mcL - ABG Interpretation ABG results: PT/INR, D-dimer PT 12.1 Seconds (9.4-12.1) 08/16/17 03:40 - VTE Documentation of Mechanical Device: Graduated compression elastic hosiery Consult Discharge Plan - Plan Referrals: Patricia Curtis MD [Primary Care Provider] -
[2017-08-20 07:48] LABS: Calcium 9.1 mg/dL (8.6-10.3); Potassium 3.4 mEq/L (3.5-5.1)
[2017-08-20] MEDS: Insulin LISPRO 300 UNITS/3 ML VIAL SQ SCH ×4 (08:20→21:35)
[2017-08-20] MEDS: Aspirin Enteric Coated 81 MG Tablet PO SCH (10:37)
[2017-08-20] MEDS: Isosorbide MONOnitrate (24 HR) 60 MG TAB.ER.24H PO SCH (10:37)
[2017-08-20] MEDS: predniSONE 20 MG TABLET PO SCH (10:37)
[2017-08-20] MEDS: cephALEXin 500 MG CAPSULE PO SCH ×4 (10:38→21:27)
[2017-08-20] MEDS: hydrALAZINE 25 MG TABLET PO SCH ×3 (11:25→21:30)
[2017-08-20] MEDS: Cholecalciferol (D-3) 1,000 UNIT TABLET PO SCH ×2 (12:27→21:26)
[2017-08-20] MEDS ORDERED: Furosemide 40 MG TABLET PO ONE (12:37)
[2017-08-20] MEDS: Furosemide 40 MG TABLET PO SCH (16:17)
[2017-08-20] MEDS: ALPRAZolam 0.5 MG TABLET PO PRN (21:27)
[2017-08-21] MEDS: *HR* OxyCODONE/APAP 5/325 TABLET PO PRN ×3 (04:09→13:54)
[2017-08-21] MEDS: Ipratropium/Albuterol Neb 3 ML IH SCH ×2 (04:09→10:07)
[2017-08-21 07:05] LABS: Hematocrit 27.5 % (35.3-44.9); Hemoglobin 8.9 g/dL (11.5-15.4); Immature Granulocytes % 1.1 % (0-4); Lymphocytes # 0.5 K/mcL (0.6-4.6); Lymphocytes % 6.7 %; Mean Corpuscular HGB Conc 32.4 g/dL (31.6-35.5); Mean Corpuscular Hemoglobin 27.5 pg (28.0-33.3); Mean Corpuscular Volume 84.9 fL (83.0-100.0); Mean Platelet Volume 9.3 fL (9.4-12.4); Monocytes # 0.7 K/mcL (0.0-1.3); Monocytes % 8.9 %; Neutrophils # 6.7 K/mcL (1.6-8.9); Platelet Count 378 K/mcL (140-400); Red Blood Count 3.24 M/mcL (3.82-4.97); Segmented Neutrophils % 83.3 %
[2017-08-21 07:14] VITALS: BP 157/81
[2017-08-21 07:23] LABS: Calcium 8.8 mg/dL (8.6-10.3); Magnesium 2.3 mg/dL (1.6-2.6); Potassium 3.6 mEq/L (3.5-5.1)
[2017-08-21] MEDS: Aspirin Enteric Coated 81 MG Tablet PO SCH (07:54)
[2017-08-21] MEDS: predniSONE 20 MG TABLET PO SCH (07:55)
[2017-08-21] MEDS: Furosemide 40 MG TABLET PO SCH (07:55)
[2017-08-21] MEDS: cephALEXin 500 MG CAPSULE PO SCH ×2 (07:55→13:54)
[2017-08-21] MEDS: hydrALAZINE 25 MG TABLET PO SCH ×2 (07:55→13:54)
[2017-08-21] MEDS: Isosorbide MONOnitrate (24 HR) 60 MG TAB.ER.24H PO SCH (07:55)
[2017-08-21] MEDS: Insulin LISPRO 300 UNITS/3 ML VIAL SQ SCH ×2 (07:56→12:21)
[2017-08-21] MEDS ORDERED: Azithromycin 250 MG TABLET PO SCH (09:00)
[2017-08-21] MEDS: Cholecalciferol (D-3) 1,000 UNIT TABLET PO SCH (10:06)
--- NOTE | 2017-08-21 14:41 | Discharge Summary ---
Date of Encounter: 08/21/17 Time of Encounter: 14:39 - Discharge Diagnosis (1) Acute exacerbation of chronic obstructive airways disease Priority: Primary Status: Acute Comments: improved. continue current medications and f/u with pcp (2) Congestive heart failure Priority: Primary Status: Acute Comments: stable. follow up with PCP. continue lasix as ordered. Qualifiers: Heart failure type: unspecified Heart failure chronicity: chronic Qualified Code(s): I50.9 - Heart failure, unspecified (3) CKD (chronic kidney disease) Priority: Secondary Status: Chronic Comments: stable. Qualifiers: Chronic kidney disease stage: unspecified stage Qualified Code(s): N18.9 - Chronic kidney disease, unspecified Hospital course: Ms. Crump is a 81 year old female discharging to home with with assistance from family. was admitted for COPD exacerbation and CHF. currently improved. denies SOB, chest pain, fever, chills, NVD. states "ready to go home. feeling much better". Discharge discussed with: patient - Time Spent with Patient Total time spent providing and/or coordinating discharge services: Greater than 30 minutes - Discharge Medications Home Medications: Albuterol Sulfate [Albuterol Inhaler] 2 aerosol .ROUTE Q4H PRN 03/03/15 [History ] Aspirin Enteric Coated [Aspirin EC] 81 mg PO DAILY 03/03/15 [History] Cholecalciferol (Vitamin D3) [Vitamin D3] 2,000 unit PO BID 03/03/15 [History] Insulin ASPART [NovoLOG] 15 unit SQ BID 03/03/15 [History] Levothyroxine [Synthroid] 75 mcg PO 0630 03/03/15 [History] Losartan [Cozaar] 50 mg PO BID 03/03/15 [History] Nitroglycerin 0.4 mg SL Q5MIN PRN 03/03/15 [History] Atorvastatin Calcium [Lipitor] 40 mg PO DAILY 08/12/17 [History] Benzonatate [Tessalon] 200 mg PO Q4-6H PRN #30 capsule 08/12/17 [Rx] Hydralazine HCl 25 mg PO TID 08/12/17 [History] Potassium Chloride [K-Tab ER] 20 meq PO TID 08/12/17 [History] Carvedilol [Coreg] 6.25 mg PO BIDWM 08/16/17 [History] ALPRAZolam [Xanax 0.5 MG Tablet] 0.5 mg PO DAILY 7 Days #7 tablet 08/21/17 [Rx] Azithromycin [Zithromax] 250 mg PO DAILY 3 Days #3 tablet 08/21/17 [Rx] Furosemide [Lasix] 40 mg PO BID #28 tablet 08/21/17 [Rx] Isosorbide MONOnitrate (24 HR) [Imdur] 60 mg PO DAILY tab.er.24h 08/21/17 [Rx] Isosorbide MONOnitrate [Isosorbide Mononitrate ER] 60 mg PO DAILY 14 Days #14 tab.er.24h 08/21/17 [Rx] OxyCODONE/APAP 5/325 [Percocet 5/325 MG] 1 each PO Q6HR PRN 5 Days #20 tablet [Rx] predniSONE [PredniSONE] 40 mg PO DAILY #8 tablet 08/21/17 [Rx] Allergies/Adverse Reactions: 3 Allergy/AdvReac Type Severity Reaction Status Date / Time acetaminophen [From [place]] Allergy See Verified 08/16/17 03:07 Comments adhesive tape Allergy Blister Verified 08/16/17 03:07 hydrocodone [From [place]] Allergy See Verified 08/16/17 03:07 Comments iron Allergy Hives Verified 08/16/17 03:07 latex Allergy Blister Verified 08/16/17 03:07 Penicillins Allergy Nausea Verified 08/16/17 03:07 Sulfa (Sulfonamide Allergy Nausea Verified 08/16/17 03:07 Antibiotics) zinc Allergy Blister Verified 08/16/17 03:07 Date of admission: 08/17/17 16:57 Primary care physician: Patricia Curtis, Discharging clinician: Donnie Ellis Anticipated date of discharge: 08/21/17 - Constitutional Vitals: Temp Pulse Resp BP Pulse Ox 98.3 F 77 16 157/81 95 08/21/17 07:13 08/21/17 07:13 08/21/17 07:13 08/21/17 07:13 08/21/17 07:13 General appearance: Present: A&O X 3, pleasant, no acute distress, answers questions appropriately - Head Head exam: Present: atraumatic, normocephalic - Eye Eye exam: Present: PERRL, conjuntiva pink, sclera anicteric Pupils: Present: PERRL - Neck Neck exam general surgery: Present: supple, trachea midline. Absent: lymphadenopathy - Respiratory Respiratory exam: Present: CTAB. Absent: accessory muscle use, rales, rhonchi, wheezes - Cardiovascular Cardiovascular exam: Present: RRR, +S1, +S2. Absent: diastolic murmur, gallop, rubs, systolic murmur - GI/Abdominal GI/Abdominal exam: Present: normal bowel sounds, soft, no peritoneal signs. Absent: distended, tenderness - Extremities Exam Extremities exam: Present: warm, radial pulses palpable and symmetrical. Absent : calf tenderness, cyanotic, pedal edema - Neurological Exam Neurological exam: Present: CN II-XII intact, oriented X3, no focal deficits. Absent: pronater drift, facial droop, speech deficit - Skin Skin exam: Present: dry, intact - Patient Status Disposition: Home, Self-Care Condition: Fair Functional capacity at discharge: uses cane/walker Overall status at discharge: patient is progressing back to baseline - Discharge Instructions Follow Up With: Patricia Curtis MD [Primary Care Provider] - Forms: ED Satisfaction Letter - Diet and Activity Activity: ambulate only with your walker Diet: advance to your usual diet - VTE Documentation of Mechanical Device: Graduated compression elastic hosiery
== END 2017-08-21 15:23 | disposition home or self-care (01) | DRG 191 ==
LOC: INPGRE 02:59 → EMEROOGRE 02:59 → INPGRE 04:58

== ENCOUNTER 2018-01-11 16:37 | Observation (INO) ==
--- NOTE | 2018-01-11 16:40 | Emergency Department Note ---
Disposition Clinical Impression: Atypical chest pain, Near syncope, Atrial flutter Disposition: Admitted As Inpatient Condition: Good Referrals: Patricia Curtis MD [Primary Care Provider] - Time of Disposition: 19:55 Chest Pain HPI - General Stated Complaint: chest pain Time Seen by Provider: 01/11/18 16:40 Source: patient Mode of arrival: private vehicle Limitations: no limitations Vital Signs Reviewed: Yes Nursing Notes Reviewed: Yes - History of Present Illness HPI Narrative: 82-year-old white female presents emergency department via private vehicle complaining of chest heaviness. She says that she had a cystoscopy yesterday and everything "I am fine." She says she woke up today and had some pain in bilateral flanks. She said that this seemed to be okay throughout the morning. She was in her kitchen preparing a meal when she started feeling like she was going to pass out. She describes being short of breath and having the feeling that someone sitting on her chest. She apparently has had a heart attack in the past and was afraid that that was what was happening. She took 2 nitroglycerin and the chest tightness seemed to ease, but it continues presently. She says that she has had bypass surgery 2 years ago and that her radiologist is Dr. Ahn. She is very anxious that she may be having a heart attack again. - Related Data Home Medications Medication Instructions Recorded Confirmed ALPRAZolam [Xanax 1 MG Tablet] 0.5 mg PO BID PRN 11/13/17 01/09/18 Albuterol Sulfate [Ventolin Hfa] 2 puff IH Q6H PRN 11/13/17 01/09/18 Aspirin [Lo-Dose Aspirin EC] 81 mg PO DAILY 11/13/17 01/09/18 Atorvastatin [Lipitor] 40 mg PO HS 11/13/17 01/09/18 Carvedilol [Coreg] 6.25 mg PO BID 11/13/17 01/09/18 Cholecalciferol (D-3) [Vitamin D] 2,000 unit PO BID 11/13/17 01/09/18 Insulin Aspart Prot/Insuln Asp 12 unit SQ BID 11/13/17 01/09/18 [Novolog Mix 70-30 Flexpen Syrn] Isosorbide MONOnitrate (24 HR) 60 mg PO DAILY 11/13/17 01/09/18 [Imdur] Levothyroxine [Synthroid] 75 mcg PO 0630 11/13/17 01/09/18 Losartan Potassium [Cozaar] 50 mg PO BID 11/13/17 01/09/18 Potassium Chloride [K-Tab ER] 20 meq PO TID 11/13/17 01/09/18 hydrALAZINE [HydrALAZINE] 25 mg PO Q8H 11/13/17 01/09/18 Furosemide [Lasix] 40 mg PO BID 11/27/17 01/09/18 Nitroglycerin [Nitrostat] 0.4 mg SL PER PKG DI PRN 11/27/17 01/09/18 OxyCODONE/APAP 5/325 [Percocet 1 each PO Q6HR PRN 11/27/17 01/09/18 5/325 MG] Previous Rx's Medication Instructions Recorded Docusate Sodium [Colace] 100 mg PO BID #60 capsule 12/01/17 Letrozole [Femara] 2.5 mg PO DAILY #30 tablet 12/01/17 OxyCODONE Immed Rel [Roxicodone 5 5 mg PO Q4HR PRN 30 Days #120 12/01/17 MG] tablet Polyethylene Glycol 3350 [MiraLAX] 17 gm PO DAILY PRN #1 powd.pack 12/01/17 Allergies Allergy/AdvReac Type Severity Reaction Status Date / Time adhesive tape Allergy Blister Verified 01/04/18 09:52 hydrocodone [From [facility]] Allergy See Verified 01/04/18 09:52 Comments iron Allergy Hives Verified 01/04/18 09:52 latex Allergy Blister Verified 01/04/18 09:52 Penicillins Allergy NAUSEA,SWEL Verified 01/04/18 09:52 LING zinc Allergy Blister Verified 01/04/18 09:52 Sulfa (Sulfonamide AdvReac Nausea Verified 01/04/18 09:52 Antibiotics) All systems ED: reviewed and negative except as stated. Constitutional: Denies: fever, chills, weakness, weight change Eyes: Denies: eye pain, eye discharge, vision change ENT ED: Denies: ear pain, throat pain, dental pain, hearing loss, epistaxis, congestion, dysphagia Cardiovascular: Reports: as per HPI, chest pain. Denies: palpitations, dyspnea on exertion, edema, syncope Respiratory: Reports: as per HPI, dyspnea. Denies: wheezes, hemoptysis, stridor Gastrointestinal: Denies: abdominal pain, nausea, vomiting, diarrhea, constipation, hematemesis, melena, hematochezia Genitourinary: Denies: dysuria, frequency, hematuria, discharge Musculoskeletal: Denies: back pain, neck pain, arthralgia, myalgia Integumentary: Denies: rash, abrasion, lesions Neurological: Denies: headache, weakness, numbness, paresthesias, confusion, abnormal gait, vertigo Psychiatric: Denies: anxiety, depression, suicidal thoughts, homicidal thoughts , auditory hallucinations, visual hallucinations Endocrine: Denies: fatigue Hematological/Lymphatic: Denies: easy bleeding, easy bruising Allergic/Immunologic: Denies: facial swelling, urticaria Chest Pain PMH - Past Medical History Medical history: Reports: atrial fibrillation, CHF, COPD, diabetes, hyperlipidemia, hypertension, myocardial infarction, renal disease, thyroid disease, other Surgical history: Reports: cancer surgery, coronary bypass (CABG), hysterectomy , orthopedic, other, other Psychiatric history: Reports: no psych history [employer] SERVICE APPRENTICE 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: Reports: 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 - Social History Smoking Status: Never smoker Alcohol use: Reports: none Drug use: Reports: none Physical Exam - General Limitations: no limitations General appearance: alert, in no apparent distress, anxious - Head Head exam: atraumatic, normocephalic, normal inspection - Eye Eye exam: Present: normal appearance, PERRL, EOMI - ENT ENT exam: normal exam, normal oropharynx, mucous membranes moist - Neck Neck exam: Present: normal inspection, full ROM, trachea midline - Chest Chest inspection: Present: normal inspection, symmetric chest wall rise - Respiratory Respiratory exam: Present: normal lung sounds bilaterally - Cardiovascular Cardiovascular exam: Present: regular rate, normal rhythm, normal heart sounds - Abdominal Exam Abdominal exam: Present: soft, Non-Tender. Absent: tenderness, distention, guarding, rebound, rigidity, organomegaly, pulsatile mass - Extremities Exam Extremities exam: Present: normal inspection, full ROM. Absent: tenderness, pedal edema - Back Exam Back exam: Present: normal inspection, full ROM. Absent: tenderness - Neurological Exam Neurological exam: Present: alert, oriented X3, CN II-XII intact. Absent: motor sensory deficit - Psychiatric Psychiatric exam: Present: normal affect, normal mood, anxious - Skin Skin exam: Present: warm, dry, intact, normal color Course Course Narrative: The patient remained stable throughout her emergency department stay. Following her Cardizem bolus of 15 mg she had little improvement in her heart rate and remained around 150 bpm. Prior to starting a Cardizem drip and with the insertion of a new IV the patient self converted to a normal sinus rhythm with a rate of 80. Her shaking vastly improved and she had no more chest tightness following her Ativan. She had no more complaints during her emergency department stay. She requested to be observed here in [place] and I spoke with Dr. Roberts at 1945 and the patient will be admitted here. Vital Signs Temperature 98.6 F 01/11/18 17:01 Pulse Rate 148 01/11/18 17:01 Respiratory Rate 18 01/11/18 17:01 Blood Pressure 124/81 01/11/18 17:01 O2 Sat by Pulse Oximetry 97 01/11/18 17:01 Temperature 98.6 F 01/11/18 17:01 Pulse Rate 148 01/11/18 17:01 Respiratory Rate 18 01/11/18 17:01 Blood Pressure 124/81 01/11/18 17:01 O2 Sat by Pulse Oximetry 97 01/11/18 17:01 Oxygen Delivery Oxygen Delivery Room Air Chest Pain - Lab Data Result diagrams: 01/11/18 17:42 01/11/18 17:42 Lab Results 01/11/18 01/11/18 01/11/18 Range/Units 17:42 17:42 17:42 WBC 5.5 (4.3-11.1) K/mcL RBC 3.65 L (3.82-4.97) M/mcL Hgb 9.5 L (11.5-15.4) g/dL Hct 30.5 L (35.3-44.9) % MCV 83.6 (83.0-100.0) fL MCH 26.0 L (28.0-33.3) pg MCHC 31.1 L (31.6-35.5) g/dL RDW 15.9 H (11.5-14.5) % Plt Count 396 (140-400) K/mcL MPV 9.9 (9.4-12.4) fL Immature Gran % 0.5 (0-4) % Seg Neutrophils % 75.9 % Lymphocytes % 11.1 % Monocytes % 8.5 % Eosinophils % 3.1 % Basophils % 0.9 % Neutrophils # 4.2 (1.6-8.9) K/mcL Lymphocytes # 0.6 (0.6-4.6) K/mcL Monocytes # 0.5 (0.0-1.3) K/mcL Eosinophils # 0.2 (0.0-0.6) K/mcL Basophils # 0.1 (0.0-0.2) K/mcL PT 12.8 H (9.4-12.1) Seconds INR 1.1 Sodium 131 L (136-145) mEq/L Potassium 3.9 (3.5-5.1) mEq/L Chloride 94 L (98-107) mEq/L Carbon Dioxide 28 (23-29) mEq/L BUN 26 H (8-23) mg/dL Creatinine 1.64 H (0.60-1.20) mg/dL Est GFR ( Amer) 36 L (> 60) Est GFR (Non-Af Amer) 30 L (> 60) BUN/Creatinine Ratio 16 (6-26) Glucose 360 H (70-105) mg/dL Calculated Osmolality 291 (280-300) Calcium 9.7 (8.6-10.3) mg/dL Total Bilirubin 0.5 (0.3-1.0) mg/dL AST 10 L (13-39) Units/L ALT 5 L (7-52) Units/L Alkaline Phosphatase 87 (34-104) Units/L Troponin I (< 0.04) ng/mL B-Natriuretic Peptide (Less than 100) pg/mL Serum Total Protein 7.0 (6.4-8.9) g/dL Albumin 3.5 (3.5-5.7) g/dL Globulin 3.5 (2.4-3.5) g/dL Albumin/Globulin Ratio 1.0 L (1.1-2.2) 01/11/18 01/11/18 Range/Units 17:42 17:42 WBC (4.3-11.1) K/mcL RBC (3.82-4.97) M/mcL Hgb (11.5-15.4) g/dL Hct (35.3-44.9) % MCV (83.0-100.0) fL MCH (28.0-33.3) pg MCHC (31.6-35.5) g/dL RDW (11.5-14.5) % Plt Count (140-400) K/mcL MPV (9.4-12.4) fL Immature Gran % (0-4) % Seg Neutrophils % % Lymphocytes % % Monocytes % % Eosinophils % % Basophils % % Neutrophils # (1.6-8.9) K/mcL Lymphocytes # (0.6-4.6) K/mcL Monocytes # (0.0-1.3) K/mcL Eosinophils # (0.0-0.6) K/mcL Basophils # (0.0-0.2) K/mcL PT (9.4-12.1) Seconds INR Sodium (136-145) mEq/L Potassium (3.5-5.1) mEq/L Chloride (98-107) mEq/L Carbon Dioxide (23-29) mEq/L BUN (8-23) mg/dL Creatinine (0.60-1.20) mg/dL Est GFR ( Amer) (> 60) Est GFR (Non-Af Amer) (> 60) BUN/Creatinine Ratio (6-26) Glucose (70-105) mg/dL Calculated Osmolality (280-300) Calcium (8.6-10.3) mg/dL Total Bilirubin (0.3-1.0) mg/dL AST (13-39) Units/L ALT (7-52) Units/L Alkaline Phosphatase (34-104) Units/L Troponin I < 0.03 (< 0.04) ng/mL B-Natriuretic Peptide 630 H (Less than 100) pg/mL Serum Total Protein (6.4-8.9) g/dL Albumin (3.5-5.7) g/dL Globulin (2.4-3.5) g/dL Albumin/Globulin Ratio (1.1-2.2) - Radiology Data Radiology results reviewed: Yes I reviewed the patient's radiology results. Single view of the chest: IMPRESSION: Findings suggest congestive heart failure D/ / Ariel Rod MD / Ariel Rod MD
[2018-01-11] MEDS ORDERED: Aspirin 81 MG TAB.CHEW PO STA (16:47)
[2018-01-11] MEDS ORDERED: *HR* LORazepam 2 MG/ML VIAL IVP ONE (16:47)
[2018-01-11] MEDS ORDERED: *HR* Morphine 2 MG/ML SYRINGE IVP ONE (16:47)
[2018-01-11] MEDS ORDERED: Ondansetron 4 MG/2 ML VIAL IVP ONE (16:47)
[2018-01-11 17:55] LABS: Basophils # 0.1 K/mcL (0.0-0.2); Basophils % 0.9 %; Eosinophils # 0.2 K/mcL (0.0-0.6); Eosinophils % 3.1 %; Hematocrit 30.5 % (35.3-44.9); Hemoglobin 9.5 g/dL (11.5-15.4); Immature Granulocytes % 0.5 % (0-4); Lymphocytes # 0.6 K/mcL (0.6-4.6); Lymphocytes % 11.1 %; Mean Corpuscular HGB Conc 31.1 g/dL (31.6-35.5); Mean Corpuscular Volume 83.6 fL (83.0-100.0); Mean Platelet Volume 9.9 fL (9.4-12.4); Monocytes # 0.5 K/mcL (0.0-1.3); Monocytes % 8.5 %; Neutrophils # 4.2 K/mcL (1.6-8.9); Platelet Count 396 K/mcL (140-400); Red Blood Count 3.65 M/mcL (3.82-4.97); Red Cell Distribution Width 15.9 % (11.5-14.5); Segmented Neutrophils % 75.9 %
[2018-01-11 18:01] LABS: INR 1.1; Prothrombin Time 12.8 Seconds (9.4-12.1)
[2018-01-11 18:10] LABS: Albumin 3.5 g/dL (3.5-5.7); Bilirubin,Total 0.5 mg/dL (0.3-1.0); Calcium 9.7 mg/dL (8.6-10.3); Globulin 3.5 g/dL (2.4-3.5); Potassium 3.9 mEq/L (3.5-5.1)
[2018-01-11] MEDS ORDERED: Naloxone 0.4 MG/ML INJ IVP PRN (20:22)
[2018-01-11] MEDS ORDERED: Nitroglycerin 0.4 MG TAB.SUBL SL PRN (20:24)
[2018-01-11] MEDS ORDERED: *HR* OxyCODONE Immed Rel 5 MG TABLET PO PRN (20:24)
[2018-01-11] MEDS ORDERED: *HR* OxyCODONE/APAP 5/325 TABLET PO PRN (20:24)
[2018-01-11] MEDS ORDERED: ALPRAZolam 1 MG TABLET PO PRN (20:24)
[2018-01-11] MEDS ORDERED: Insulin NPH/REG 70/30 300 UNIT/3 ML per UNIT SQ ONE (21:00)
[2018-01-11] MEDS: Cholecalciferol (D-3) 1,000 UNIT TABLET PO SCH (22:09)
[2018-01-11] MEDS: hydrALAZINE 25 MG TABLET PO SCH (22:09)
[2018-01-11] MEDS: Furosemide 40 MG TABLET PO SCH (22:09)
[2018-01-12] MEDS: hydrALAZINE 25 MG TABLET PO SCH ×2 (04:28→14:57)
[2018-01-12] MEDS: Cholecalciferol (D-3) 1,000 UNIT TABLET PO SCH (08:49)
[2018-01-12] MEDS: Furosemide 40 MG TABLET PO SCH ×2 (08:49→14:57)
[2018-01-12] MEDS ORDERED: Letrozole 2.5 MG TABLET PO SCH (09:00)
[2018-01-12] MEDS ORDERED: Isosorbide MONOnitrate (24 HR) 60 MG TAB.ER.24H PO SCH (09:00)
[2018-01-12] MEDS ORDERED: Aspirin Enteric Coated 81 MG Tablet PO SCH (09:00)
[2018-01-12] MEDS ORDERED: Insulin NPH/REG 70/30 100 UNIT/ML (x5UNIT) SQ SCH ×2 (09:00→21:00)
[2018-01-12] MEDS ORDERED: *HR* LORazepam 2 MG/ML VIAL IVP ONE (09:44)
[2018-01-12 11:14] VITALS: BP 95/50
--- NOTE | 2018-01-12 14:25 | Internal Med History&Physical ---
Date of Encounter: 01/12/18 Time of Encounter: 14:23 Assessment and Plan (1) Atypical chest pain Current visit: Yes Status: Acute Patient was admitted for chest tightness and found to have atrial fib/flutter with RVR. Patient was started on Cardizem drip while in the emergency department and after her rate became controlled less than 100 bpm, and throughout the night Cardizem drip was weaned off. Patient was started on oral Cardizem. Patient did not experience any further chest discomforts while on the unit overnight. Patient denies any dyspnea or palpitations. Patient had serial troponins that were performed and they were negative also. Because the patient's strong history of coronary artery disease patient is being in significant, she is to see her radiocommunications technician Dr. Ahn. Patient will continue on oral Cardizem after discharge. (2) Atrial flutter Current visit: Yes Status: Chronic As noted above patient's RVR resolved and patient currently has a regular rate with controlled ventricular rate of less than 100. Patient denies any chest discomforts. Patient's Cardizem drip was weaned and patient was converted to oral dosing. Patient is being prepared for discharge and will remain on oral Cardizem until seen by cardiology. Qualifiers: Atrial flutter type: unspecified Qualified Code(s): I48.92 - Unspecified atrial flutter (3) Congestive heart failure Current visit: No Status: Chronic No acute issues during her stay. Lungs are diminished at bases but otherwise clear. Patient denies any dyspnea at rest. We will continue on current medications Qualifiers: Heart failure type: unspecified Heart failure chronicity: chronic Qualified Code(s): I50.9 - Heart failure, unspecified (4) Diabetes Current visit: No Status: Chronic No acute issues during her stay of facility. Patient's glucose was slightly elevated and was covered with sliding scale insulin. Patient is to continue with home medications Qualifiers: Diabetes mellitus type: type 2 Diabetes mellitus alf insulin use: with management nurse rn use Diabetes mellitus complication status: with other specified complication Qualified Code(s): E11.69 - Type 2 diabetes mellitus with other specified complication; Z79.4 - nursing home (current) use of insulin; Z79.4 - nursing home (current) use of insulin; Z79.4 - television camera operator (current) use of insulin; Z79.4 - television camera operator (current) use of insulin (5) CKD (chronic kidney disease) Current visit: Yes Status: Chronic No acute issues. Patient's admission creatinine was 1.64. Continue patient on current home medications. Qualifiers: Chronic kidney disease stage: unspecified stage Qualified Code(s): N18.9 - Chronic kidney disease, unspecified Internal Medicine - H&P: HPI Chief complaint: chest tightness Admitted From: Home Plans for Post Hospital Care: Home History of present illness: Ms. Crump is a 82 year old female, presented to the emergency department via private vehicle complaining of chest heaviness. She says that she had a cystoscopy yesterday and everything "I am fine." She says she woke up today and had some pain in bilateral flanks. She said that this seemed to be okay throughout the morning. She was in her kitchen preparing a meal when she started feeling like she was going to pass out. She describes being short of breath and having the feeling that someone sitting on her chest. She apparently has had a heart attack in the past and was afraid that that was what was happening. She took 2 nitroglycerin and the chest tightness seemed to ease , but it continues presently. She says that she has had bypass surgery 2 years ago and that her radiocommunications technician is Dr. Ahn. She is very anxious that she may be having a heart attack again EKG showed atrial fib/flutter with a ventricular rate greater than 100. Patient was started on a Cardizem drip while in the emergency department and patient was transferred to this floor for further evaluation. Past Med Surg Social Fam HX - Past Medical History Medical history: atrial fibrillation, CHF, COPD, diabetes, hyperlipidemia, hypertension, myocardial infarction, renal disease, thyroid disease, other Additional medical history: right breast surgery, chronic anemia, pe, breast cancer, A. fib, hypothyroid, lumbar fx Psychiatric history: no psych history - Past Surgical History Surgical History: cancer surgery, coronary bypass (CABG), hysterectomy, orthopedic, other, other Additional surgical history: triple bypass, shoulder replacement, bilateral masectomy - Social History Smoking Status: Never smoker Smokeless Tobacco Status: No Alcohol use: none Drug use: none - Family History Father Living Status: Hx Family Cardiac Disorders: Yes Mother Living Status: Hx Family Cardiac Disorders: Yes Brother Living Status: Hx Family Cancer: Yes Internal Medicine - H&P: Meds ALPRAZolam [Xanax 1 MG Tablet] 0.5 mg PO BID PRN 11/13/17 [History] Albuterol Sulfate [Ventolin Hfa] 2 puff IH Q6H PRN 11/13/17 [History] Aspirin [Lo-Dose Aspirin EC] 81 mg PO DAILY 11/13/17 [History] Atorvastatin [Lipitor] 40 mg PO HS 11/13/17 [History] Carvedilol [Coreg] 6.25 mg PO BID 11/13/17 [History] Cholecalciferol (D-3) [Vitamin D] 2,000 unit PO BID 11/13/17 [History] Insulin Aspart Prot/Insuln Asp [Novolog Mix 70-30 Flexpen Syrn] 12 unit SQ DAILY 11/13/17 [History] Isosorbide MONOnitrate (24 HR) [Imdur] 60 mg PO DAILY 11/13/17 [History] Levothyroxine [Synthroid] 75 mcg PO 30 11/13/17 [History] Losartan Potassium [Cozaar] 50 mg PO BID 11/13/17 [History] Potassium Chloride [K-Tab ER] 20 meq PO TID 11/13/17 [History] hydrALAZINE [HydrALAZINE] 25 mg PO Q8H 11/13/17 [History] Furosemide [Lasix] 40 mg PO TID 11/27/17 [History] Nitroglycerin [Nitrostat] 0.4 mg SL PER PKG DI PRN 11/27/17 [History] OxyCODONE/APAP 5/325 [Percocet 5/325 MG] 1 each PO Q4H PRN 11/27/17 [History] Letrozole [Femara] 2.5 mg PO DAILY #30 tablet 12/01/17 [Rx] OxyCODONE Immed Rel [Roxicodone 5 MG] 5 mg PO Q4HR PRN 30 Days #120 tablet 12/01 [Rx] Insulin Aspart Prot/Insuln Asp [Novolog Mix 70-30 Flexpen Syrn] 16 unit SQ HS [History] 3 Allergy/AdvReac Type Severity Reaction Status Date / Time adhesive tape Allergy Blister Verified 01/04/18 09:52 hydrocodone [From [place]] Allergy See Verified 01/04/18 09:52 Comments iron Allergy Hives Verified 01/04/18 09:52 latex Allergy Blister Verified 01/04/18 09:52 Penicillins Allergy NAUSEA,SWEL Verified 01/04/18 09:52 LING zinc Allergy Blister Verified 01/04/18 09:52 Sulfa (Sulfonamide AdvReac Nausea Verified 01/04/18 09:52 Antibiotics) All Systems PM: A 10-system review of systems was performed and is negative for pertinent findings except as documented above in the HPI. - Constitutional Constitutional: as per HPI, no chills, no fever(s), no night sweats - EENT Eyes: no change in vision, no discharge, no pain, no photophobia Ears: no ear discharge, no ear pain, no tinnitus Nose, mouth and throat: no dysphagia, no nasal discharge, no neck pain, no sore throat - Cardiovascular Cardiovascular ROS IM: as per HPI, no chest pain, no diaphoresis, no dyspnea, no lightheadedness, no palpitations, no syncope - Respiratory Respiratory: as per HPI, no cough, no dyspnea, no wheezing, no excessive phlegm production - Gastrointestinal Gastrointestinal: as per HPI, no abdominal pain, no diarrhea, no hematemesis, no hematochezia, no melena, no nausea, no vomiting - Genitourinary Genitourinary: no change in urinary stream, no dysuria, no flank pain, no hematuria - Musculoskeletal Musculoskeletal ROS IM: no numbness, no tingling - Integumentary Integumentary IM: no rash, no unusual bruising - Neurological Neurological ROS: no confusion, no convulsions, no focal weakness, no numbness, no tingling, no tremor(s) - Hematologic/Lymphatic Hematologic/Lymphatic: no easy bruising - Constitutional Vitals: Temp Pulse Resp BP Pulse Ox 97.9 F 62 17 95/50 94 01/12/18 11:08 01/12/18 11:08 01/12/18 11:08 01/12/18 11:08 01/12/18 11:08 General appearance: Present: A&O X 3 - Head Head exam: Present: atraumatic, normocephalic - Eye Eye exam: Present: PERRL, conjuntiva pink, sclera anicteric Pupils: Present: PERRL - Neck Neck exam general surgery: Present: supple, trachea midline. Absent: lymphadenopathy - Respiratory Respiratory exam: Present: CTAB. Absent: accessory muscle use, rales, rhonchi, wheezes Additional comments: Lungs are clear throughout upper young and noted diminished bases. Respiratory effort appears relaxed. No productive cough. - Cardiovascular Cardiovascular exam: Present: RRR, +S1, +S2. Absent: diastolic murmur, gallop, rubs, systolic murmur Additional comments: Patient's heart rate appears to be regular with controlled ventricular rate less than 100. - GI/Abdominal GI/Abdominal exam: Present: normal bowel sounds, soft, no peritoneal signs. Absent: distended, tenderness - Extremities Exam Extremities exam: Present: warm, radial pulses palpable and symmetrical. Absent : calf tenderness, cyanotic, pedal edema - Neurological Exam Neurological exam: Present: CN II-XII intact, oriented X3, no focal deficits. Absent: pronater drift, facial droop, speech deficit - Skin Skin exam: Present: dry, intact Internal Med - H&P Results - Labs CBC & Chem 7: 01/11/18 17:42 01/11/18 17:42 Labs: Cardiac Enzymes 01/11/18 01/12/18 01/12/18 Range/Units 23:44 05:44 11:46 Troponin I 0.03 0.03 < 0.03 (< 0.04) ng/mL
--- NOTE | 2018-01-12 15:13 | Discharge Summary ---
Orders not resulted at time of discharge: Pending orders 01/12/18 11:46 Thyroxine (T4) Free Stat 01/12/18 13:50 iron, transferrin, % saturation [Iron Profile] Routine Date of Encounter: 01/12/18 Time of Encounter: 15:11 - Discharge Diagnosis (1) Atypical chest pain Priority: Primary Status: Acute Comments: Patient presented to emergency department with complaints of chest tightness. Patient was found to be in atrial fib/flutter with RVR and was started on a Cardizem drip. Patient's chest pain soon resolved. Patient had a strong cardiac history, having recently had a CABG done approximately 2 years ago. Patient remained pain-free overnight. Denies any dyspnea. Patient's ventricular rate remained controlled less than 100 and a Cardizem was weaned and she was eventually worked to oral dosing. Patient is being discharged to home with Cardizem CD 120 mg daily until seen by her generating plant superintendent Dr. Ahn. Arranged been made for her to see her generating plant superintendent in the upcoming week. Patient denies any current chest discomforts or palpitations. Denies any dyspnea. (2) Atrial flutter Priority: Secondary Status: Chronic Comments: As noted above patient presented with atrial fib/flutter with RVR of greater than and 30 bpm. Patient was started on Cardizem drip and her rate became controlled less than 100. Vital signs remained stable. Patient had her Cardizem drip weaned and eventually converted to oral Cardizem. Patient is being discharged to home with prescription for oral Cardizem and is to follow- up with cardiology. Qualifiers: Atrial flutter type: unspecified Qualified Code(s): I48.92 - Unspecified atrial flutter (3) Congestive heart failure Priority: Secondary Status: Chronic Comments: No acute issues noted during her stay of facility. Patient's lungs were diminished at bases but otherwise clear to auscultation. Patient's respiratory effort appears to be relaxed. No productive cough. Patient will be discharged home and to continue on home medications. Patient is recommended to follow up with cardiology. Qualifiers: Heart failure type: unspecified Heart failure chronicity: chronic Qualified Code(s): I50.9 - Heart failure, unspecified (4) Diabetes Priority: Secondary Status: Chronic Comments: Glucose was elevated on admission and patient was treated with sliding scale insulin. Patient is being discharged home with controlled glucose and recommendations continue with her home regimen of medications. Patient's follow -up with PCP in one week. Qualifiers: Diabetes mellitus type: type 2 Diabetes mellitus intermediate accountant insulin use: with residential use Diabetes mellitus complication status: with other specified complication Qualified Code(s): E11.69 - Type 2 diabetes mellitus with other specified complication; Z79.4 - intermediate accountant (current) use of insulin; Z79.4 - [facility] (current) use of insulin; Z79.4 - intermediate accountant (current) use of insulin; Z79.4 - intermediate accountant (current) use of insulin (5) CKD (chronic kidney disease) Priority: Secondary Status: Chronic Comments: No acute issues during her stay of facility. Patient's admission creatinine was 1.64. Continue with current home medications. Qualifiers: Chronic kidney disease stage: unspecified stage Qualified Code(s): N18.9 - Chronic kidney disease, unspecified Hospital course: Ms. Crump is a 82 year old female presented to emergency department via private vehicle complaining of chest heaviness. She says that she had a cystoscopy yesterday and everything "I am fine." She says she woke up today and had some pain in bilateral flanks. She said that this seemed to be okay throughout the morning. She was in her kitchen preparing a meal when she started feeling like she was going to pass out. She describes being short of breath and having the feeling that someone sitting on her chest. She apparently has had a heart attack in the past and was afraid that that was what was happening. She took 2 nitroglycerin and the chest tightness seemed to ease, but it continues presently. She says that she has had bypass surgery 2 years ago and that her radiologist is Dr. Ahn. She is very anxious that she may be having a heart attack again EKG showed patient have atrial fib/flutter with RVR rate greater than current 30 degrees for 100. Patient was started on a Cardizem drip and eventually throughout the night her ventricular rate became controlled less than 100. Patient's Cardizem drip was weaned and she was eventually converted to oral dosing. Patient denies any other chest pain throughout the night or dyspnea. Patient denies any chest palpitations or productive cough. Patient was given recommendations to follow up with her generating plant superintendent within the next week and will be discharged home with a prescription for oral Cardizem. He also is to follow-up with her PCP. Discharge discussed with: patient, family Time spent discussing smoking cessation with patient: 3 to 10 minutes - Time Spent with Patient Total time spent providing and/or coordinating discharge services: Less than 30 minutes - Discharge Medications Home Medications: ALPRAZolam [Xanax 1 MG Tablet] 0.5 mg PO BID PRN 11/13/17 [History] Albuterol Sulfate [Ventolin Hfa] 2 puff IH Q6H PRN 11/13/17 [History] Aspirin [Lo-Dose Aspirin EC] 81 mg PO DAILY 11/13/17 [History] Atorvastatin [Lipitor] 40 mg PO HS 11/13/17 [History] Carvedilol [Coreg] 6.25 mg PO BID 11/13/17 [History] Cholecalciferol (D-3) [Vitamin D] 2,000 unit PO BID 11/13/17 [History] Insulin Aspart Prot/Insuln Asp [Novolog Mix 70-30 Flexpen Syrn] 12 unit SQ DAILY 11/13/17 [History] Isosorbide MONOnitrate (24 HR) [Imdur] 60 mg PO DAILY 11/13/17 [History] Levothyroxine [Synthroid] 75 mcg PO 0630 11/13/17 [History] Losartan Potassium [Cozaar] 50 mg PO BID 11/13/17 [History] Potassium Chloride [K-Tab ER] 20 meq PO TID 11/13/17 [History] hydrALAZINE [HydrALAZINE] 25 mg PO Q8H 11/13/17 [History] Furosemide [Lasix] 40 mg PO TID 11/27/17 [History] Nitroglycerin [Nitrostat] 0.4 mg SL PER PKG DI PRN 11/27/17 [History] OxyCODONE/APAP 5/325 [Percocet 5/325 MG] 1 each PO Q4H PRN 11/27/17 [History] Letrozole [Femara] 2.5 mg PO DAILY #30 tablet 12/01/17 [Rx] OxyCODONE Immed Rel [Roxicodone 5 MG] 5 mg PO Q4HR PRN 30 Days #120 tablet 12/01 [Rx] Insulin Aspart Prot/Insuln Asp [Novolog Mix 70-30 Flexpen Syrn] 16 unit SQ HS [History] Allergies/Adverse Reactions: 3 Allergy/AdvReac Type Severity Reaction Status Date / Time adhesive tape Allergy Blister Verified 01/04/18 09:52 hydrocodone [From [place]] Allergy See Verified 01/04/18 09:52 Comments iron Allergy Hives Verified 01/04/18 09:52 latex Allergy Blister Verified 01/04/18 09:52 Penicillins Allergy NAUSEA,SWEL Verified 01/04/18 09:52 LING zinc Allergy Blister Verified 01/04/18 09:52 Sulfa (Sulfonamide AdvReac Nausea Verified 01/04/18 09:52 Antibiotics) Date of admission: 01/11/18 20:20 Primary care physician: Patricia Curtis, Discharging clinician: Salvatore Roberts - Constitutional Vitals: Temp Pulse Resp BP Pulse Ox 97.9 F 62 17 95/50 94 01/12/18 11:08 01/12/18 11:08 01/12/18 11:08 01/12/18 11:08 01/12/18 11:08 General appearance: Present: A&O X 3 - Head Head exam: Present: atraumatic, normocephalic - Eye Eye exam: Present: PERRL, conjuntiva pink, sclera anicteric Pupils: Present: PERRL - Neck Neck exam general surgery: Present: supple, trachea midline. Absent: lymphadenopathy - Respiratory Respiratory exam: Present: CTAB. Absent: accessory muscle use, rales, rhonchi, wheezes Additional comments: Lungs are clear throughout upper young and diminished bases. Productive cough noted. Respiratory effort appears relaxed - Cardiovascular Cardiovascular exam: Present: RRR, +S1, +S2. Absent: diastolic murmur, gallop, rubs, systolic murmur Additional comments: Heart rate currently is regular with a ventricular pulse less than 100 - GI/Abdominal GI/Abdominal exam: Present: normal bowel sounds, soft, no peritoneal signs. Absent: distended, tenderness - Extremities Exam Extremities exam: Present: warm, radial pulses palpable and symmetrical. Absent : calf tenderness, cyanotic, pedal edema - Neurological Exam Neurological exam: Present: CN II-XII intact, oriented X3, no focal deficits. Absent: pronater drift, facial droop, speech deficit - Skin Skin exam: Present: dry, intact - Patient Status Disposition: Home, Self-Care Condition: Good Functional capacity at discharge: uses cane/walker Overall status at discharge: patient is progressing back to baseline - Discharge Instructions Follow Up With: Reagan Ahn MD [Partnered Physician] - 01/15/18 1:30 pm Forms: ED Satisfaction Letter - Diet and Activity Diet: low fat, low cholesterol, low salt diet
--- NOTE | 2018-01-13 16:10 | Electrocardiograph Report ---
[address] [place], [place] [address] Test Date: 2018-01-12 Pat Name: Cece Crump Department: 2001 Room: 112 Gender: Acid Pumper: Alonso : 1935 Requested By: Salvatore Roberts Order Number: [id number] Reading MD: Patrick Downs Measurements Intervals [place] Rate: 47 P: [place]: 0 QRS: 115 QRSD: 138 T: 85 QT: 527 QTc: 490 Interpretive Statements Possbile limb leads reversal Sinus bradycardia INTRAVENTRICULAR CONDUCTION DELAY POSSIBLE ANTERIOR MYOCARDIAL INFARCTION, age indetermined Nonspecific T abnormalities Electronically Signed On 01-13-2018 16:08:33 EDT by Patrick Downs Electronically Signed On 01-13-2018 16:13:11 EDT by Patrick Downs
--- NOTE | 2018-01-13 16:12 | Electrocardiograph Report ---
[address] [place], [place] [address] Test Date: 2018-01-12 Pat Name: Cece Crump Department: 2001 Room: 112 Gender: F Fur Glosser: Alonso : 1935 Requested By: Hugo Baker Order Number: [id number] Agustin MD: Patrick Downs Measurements Intervals [place] Rate: 54 P: 0 [place]: 209 QRS: 121 QRSD: 135 T: 85 QT: 487 QTc: 473 Interpretive Statements LIMB LEAD REVERSAL LIKEY, PLEASE REPEAT ECG. SINUS BRADYCARDIA WITH MARKED SINUS ARRHYTHMIA INTRAVENTRICULAR CONDUCTION DELAY POSSIBLE ANTERIOR MYOCARDIAL INFARCTION, age indeterminate Electronically Signed On 01-13-2018 16:10:49 EDT by Patrick Downs
[2018-01-13 18:35] LABS: % Iron Saturation 11 % (15-50); Iron 27 mcg/dL (50-170); Transferrin 171 mg/dL (203-362)
--- NOTE | 2018-01-15 16:51 | Electrocardiograph Report ---
[address] [place], [place] [address] Test Date: 2018-01-11 Pat Name: Cece Crump Department: 2000 Room: 112 Gender: F Supervisor [employer]: : 1935 Requested By: Hugo Baker Order Number: [id number] Reading MD: Juanjo Jiménez Measurements Intervals [place] Rate: 147 P: -46 [place]: 156 QRS: -59 QRSD: 138 T: 45 QT: 325 QTc: 409 Interpretive Statements SINUS TACHYCARDIA, POSSIBLE ATRIAL FLUTTER MARKED LEFT AXIS DEVIATION INTRAVENTRICULAR CONDUCTION DELAY POSSIBLE ANTERIOR MYOCARDIAL INFARCTION, OF INDETERMINATE AGE Electronically Signed On 01-15-2018 16:50:28 EDT by Juanjo Jiménez
--- NOTE | 2018-01-15 16:52 | Electrocardiograph Report ---
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
== END 2018-01-12 16:00 | disposition home or self-care (01) ==
LOC: EMEROOGRE 16:37 → INPGRE 16:37

== ENCOUNTER 2018-03-21 14:31 | Inpatient (IN) ==
[2018-03-22] MEDS ORDERED: Nitroglycerin 0.4 MG TAB.SUBL SL PRN (16:14)
--- NOTE | 2018-03-22 16:31 | Internal Med History&Physical ---
Addendum entered and electronically signed by Donnie Ellis DO 03/23/18 11:19: I have personally performed a face to face evaluation on this patient. I have reviewed and agree with the care plan. 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 Patient was admitted for rehabilitation due to deconditioning secondary to her surgery. Patient's recovery at [facility] was uneventful. Patient denies any current discomforts but states that when she does have pain that her pain is well managed with current medications. Patient has a DANGELO drain to the right lower quadrant that has minimal amount of serosanguineous drainage. Colostomy to left lower quadrant appears healthy. Patient has several skin to have wound type surgical incisions secondary from her laparoscopic surgery, which all appear healthy with pedro in place. Physical therapy evaluation pending with recommendations. We will continue with current plan of care. We will repeat labs in the morning (2) Congestive heart failure Current visit: No Status: Chronic No acute issues. Patient denies any dyspnea or chest palpitations. Lungs are clear throughout. We will continue his current medications Qualifiers: Heart failure type: unspecified Heart failure chronicity: chronic Qualified Code(s): I50.9 - Heart failure, unspecified (3) Diabetes Current visit: No Status: Chronic No acute issues. We will continue to cover patient with sliding scale insulin and continue on current medications. Qualifiers: Diabetes mellitus type: type 2 Diabetes mellitus long-term insulin use: with long-term use Diabetes mellitus complication status: with other specified complication Qualified Code(s): E11.69 - Type 2 diabetes mellitus with other specified complication; Z79.4 - education site manager (current) use of insulin; Z79.4 - USP (current) use of insulin; Z79.4 - USP (current) use of insulin; Z79.4 - education site manager (current) use of insulin Internal Medicine - H&P: HPI Chief complaint: revision of rectal-vaginal fistula Admitted From: Hospital to Hospital Transfer Plans for Post Hospital Care: Home History of present illness: Ms. Crump is a 82 year old female , who was admitted to an [facility] and diagnosed with a rectal vaginal fistula. Patient was surgically treated with a sigmoid resection with ostomy and lysis of adhesions on 03/16 for her colovaginal fistula. Patient had an uneventful recovery during her stay there and was transferred this facility for further rehabilitation due to deconditioning. Patient continues to have a DANGELO drain to the right lower quadrant of abdomen which continues to have a minimal amount of serosanguineous type drainage received. Patient has a colostomy to the left lower quadrant of abdomen which currently has a small amount of brown loose stool. Stoma appears healthy. Patient states that her pain has been well tolerated with current pain medications. Patient denies any discomforts or shortness of breath at this time. Patient states that she had a BM today. Denies any nausea. Past Med Surg Social Fam HX - Past Medical History Medical history: atrial fibrillation, CHF, COPD, diabetes, hyperlipidemia, hypertension, myocardial infarction, renal disease, thyroid disease, other Additional medical history: right breast surgery, chronic anemia, pe, breast cancer, A. fib, hypothyroid, lumbar fx Psychiatric history: no psych history - Past Surgical History Surgical History: cancer surgery, coronary bypass (CABG), hysterectomy, orthopedic, other, other Additional surgical history: triple bypass, shoulder replacement, bilateral masectomy, knee replacement - Social History Smoking Status: Never smoker Smokeless Tobacco Status: No Alcohol use: none Drug use: none - Family History Father Living Status: Hx Family Cardiac Disorders: Yes Mother Living Status: Hx Family Cardiac Disorders: Yes Brother Living Status: Hx Family Cancer: Yes (brain/ liver/ spine) Internal Medicine - H&P: Meds Albuterol Sulfate [Ventolin Hfa] 2 puff IH Q4HR PRN 11/13/17 [History] Aspirin [Lo-Dose Aspirin EC] 81 mg PO DAILY 11/13/17 [History] Atorvastatin [Lipitor] 40 mg PO HS 11/13/17 [History] Carvedilol [Coreg] 6.25 mg PO BID 11/13/17 [History] Cholecalciferol (D-3) [Vitamin D] 2,000 unit PO BID 11/13/17 [History] Insulin Aspart Prot/Insuln Asp [Novolog Mix 70-30 Flexpen Syrn] 12 unit SQ DAILY 11/13/17 [History] Isosorbide MONOnitrate (24 HR) [Imdur] 60 mg PO DAILY 11/13/17 [History] Levothyroxine [Synthroid] 75 mcg PO 0630 11/13/17 [History] Losartan Potassium [Cozaar] 50 mg PO BID 11/13/17 [History] Potassium Chloride [K-Tab ER] 20 meq PO TID 11/13/17 [History] hydrALAZINE [HydrALAZINE] 25 mg PO Q8H 11/13/17 [History] Furosemide [Lasix] 40 mg PO TID 11/27/17 [History] Nitroglycerin [Nitrostat] 0.4 mg SL PER PKG DI PRN 11/27/17 [History] Letrozole [Femara] 2.5 mg PO DAILY #30 tablet 12/01/17 [Rx] Insulin Aspart Prot/Insuln Asp [Novolog Mix 70-30 Flexpen Syrn] 16 unit SQ QPM 01/11/18 [History] Diltiazem CD (24hr) [Cardizem CD] 120 mg PO DAILY #1 cap.er.24h 01/12/18 [Rx] Lactulose 15 mg PO TID 03/02/18 [History] Lidocaine Patch [Lidoderm 5% patch] 1 patch TD Q12H PRN 03/02/18 [History] Oxycodone HCl/Acetaminophen [Percocet 10-325 mg Tablet] 1 tab PO Q6HR PRN 03/02/18 [History] Cyclobenzaprine HCl 5 mg PO HS PRN 03/15/18 [History] ALPRAZolam [Xanax 1 MG Tablet] 1 mg PO BID PRN 5 Days #10 tablet 03/22/18 [Rx] OxyCODONE/APAP 5/325 [Percocet 5/325 MG] 1 each PO Q6HR PRN 5 Days #20 tablet 03/22/18 [Rx] Allergy/AdvReac Type Severity Reaction Status Date / Time adhesive tape Allergy Blister Verified 03/02/18 07:24 hydrocodone [From [place]] Allergy See Verified 03/02/18 07:24 Comments iron Allergy Hives Verified 03/02/18 07:24 latex Allergy Blister Verified 03/02/18 07:24 Penicillins Allergy NAUSEA,SWEL Verified 03/02/18 07:24 LING zinc Allergy Blister Verified 03/02/18 07:24 Sulfa (Sulfonamide AdvReac Nausea Verified 03/02/18 07:24 Antibiotics) All Systems PM: A 10-system review of systems was performed and is negative for pertinent findings except as documented above in the HPI. - Constitutional Constitutional: no chills, no fever(s), no night sweats - EENT Eyes: as per HPI, no change in vision, no discharge, no pain, no photophobia Ears: no ear discharge, no ear pain, no tinnitus Nose, mouth and throat: as per HPI, no dysphagia, no nasal discharge, no neck pain, no sore throat - Cardiovascular Cardiovascular ROS IM: as per HPI, no chest pain, no diaphoresis, no dyspnea, no lightheadedness, no palpitations, no syncope - Respiratory Respiratory: as per HPI, no cough, no dyspnea, no wheezing, no excessive phlegm production - Gastrointestinal Gastrointestinal: as per HPI, no abdominal pain, no diarrhea, no hematemesis, no hematochezia, no melena, no nausea, no vomiting - Genitourinary Genitourinary: no change in urinary stream, no dysuria, no flank pain, no hematuria - Musculoskeletal Musculoskeletal ROS IM: as per HPI, no numbness, no tingling - Integumentary Integumentary IM: no rash, no unusual bruising - Neurological Neurological ROS: as per HPI, no confusion, no convulsions, no focal weakness, no numbness, no tingling, no tremor(s) - Hematologic/Lymphatic Hematologic/Lymphatic: no easy bruising - Constitutional Vitals: Temp Pulse Resp BP Pulse Ox 98 F 75 17 116/57 96 03/22/18 15:26 03/22/18 15:26 03/22/18 15:26 03/22/18 15:26 03/22/18 15:26 General appearance: Present: A&O X 3, pleasant - Head Head exam: Present: atraumatic, normocephalic - Eye Eye exam: Present: PERRL, conjuntiva pink, sclera anicteric Pupils: Present: PERRL - Neck Neck exam general surgery: Present: supple, trachea midline. Absent: lymphadenopathy - Respiratory Respiratory exam: Present: CTAB. Absent: accessory muscle use, rales, rhonchi, wheezes - Cardiovascular Cardiovascular exam: Present: RRR, +S1, +S2. Absent: diastolic murmur, gallop, rubs, systolic murmur - GI/Abdominal GI/Abdominal exam: Present: normal bowel sounds, soft, no peritoneal signs. Absent: distended, tenderness Additional comments: Abdomin soft, nontender, nondistended with BS all quads. Patient has a DANGELO drain to the right lower quadrant with a minimal amount of serosanguineous drainage received. Insertion site appears healthy. Patient has a colostomy to the left lower quadrant of abdomen with minimal amount of loose stool. Stoma appears healthy patient has 3 stab wounds with pedro in place from her laparoscopic surgery, all appear healthy and intact - Extremities Exam Extremities exam: Present: warm, radial pulses palpable and symmetrical. Absent: calf tenderness, cyanotic, pedal edema - Neurological Exam Neurological exam: Present: CN II-XII intact, oriented X3, no focal deficits. Absent: pronater drift, facial droop, speech deficit - Skin Skin exam: Present: dry, intact
[2018-03-22] MEDS ORDERED: Insulin NPH/REG 70/30 300 UNIT/3 ML VIAL SQ ONE (18:00)
[2018-03-22] MEDS: hydrALAZINE 25 MG TABLET PO SCH (18:36)
[2018-03-22] MEDS: *HR* Heparin 5,000 UNIT/ML VIAL SQ SCH (18:36)
[2018-03-22] MEDS: *HR* OxyCODONE/APAP 10/325 TABLET PO PRN (18:41)
[2018-03-22] MEDS: Furosemide 40 MG TABLET PO SCH (22:02)
[2018-03-22] MEDS: Lactulose Oral Soln 20 GM/30 ML UDC PO SCH (22:02)
[2018-03-22] MEDS: Cholecalciferol (D-3) 1,000 UNIT TABLET PO SCH (22:02)
[2018-03-23] MEDS: *HR* OxyCODONE/APAP 10/325 TABLET PO PRN ×4 (00:45→23:21)
[2018-03-23] MEDS: hydrALAZINE 25 MG TABLET PO SCH ×4 (00:45→23:13)
[2018-03-23 05:47] LABS: Basophils % 0.4 %; Eosinophils # 0.3 K/mcL (0.0-0.6); Eosinophils % 4.4 %; Hematocrit 27.7 % (35.3-44.9); Hemoglobin 8.9 g/dL (11.5-15.4); Immature Granulocytes % 0.4 % (0-4); Lymphocytes # 0.8 K/mcL (0.6-4.6); Lymphocytes % 12.1 %; Mean Corpuscular HGB Conc 32.1 g/dL (31.6-35.5); Mean Corpuscular Hemoglobin 27.6 pg (28.0-33.3); Mean Corpuscular Volume 85.8 fL (83.0-100.0); Mean Platelet Volume 9.1 fL (9.4-12.4); Monocytes # 0.6 K/mcL (0.0-1.3); Monocytes % 8.7 %; Platelet Count 350 K/mcL (140-400); Red Blood Count 3.23 M/mcL (3.82-4.97); Red Cell Distribution Width 16.3 % (11.5-14.5)
[2018-03-23 05:51] LABS: INR 1.2; Prothrombin Time 13.4 Seconds (9.4-12.1)
[2018-03-23] MEDS: *HR* Heparin 5,000 UNIT/ML VIAL SQ SCH ×2 (06:19→17:44)
[2018-03-23] MEDS: Isosorbide MONOnitrate (24 HR) 60 MG TAB.ER.24H PO SCH (10:07)
[2018-03-23] MEDS: ALPRAZolam 1 MG TABLET PO PRN (10:08)
[2018-03-23] MEDS: Lactulose Oral Soln 20 GM/30 ML UDC PO SCH ×3 (10:08→23:10)
[2018-03-23] MEDS: Letrozole 2.5 MG TABLET PO SCH (10:08)
[2018-03-23] MEDS: Furosemide 40 MG TABLET PO SCH ×3 (10:08→23:10)
[2018-03-23] MEDS: Diltiazem CD (24hr) 120 MG CAPSULE PO SCH (10:08)
[2018-03-23] MEDS: Cholecalciferol (D-3) 1,000 UNIT TABLET PO SCH ×2 (10:08→23:09)
[2018-03-23] MEDS: Aspirin Enteric Coated 81 MG Tablet PO SCH (10:08)
[2018-03-23] MEDS: Insulin NPH/REG 70/30 100 UNIT/ML (x5UNIT) SQ SCH (10:09)
[2018-03-23] MEDS: *HR* OxyCODONE/APAP 5/325 TABLET PO PRN (10:28)
[2018-03-23] MEDS: Insulin NPH/REG 70/30 300 UNIT/3 ML VIAL SQ SCH (17:46)
[2018-03-24] MEDS: *HR* Heparin 5,000 UNIT/ML VIAL SQ SCH ×2 (06:56→17:21)
[2018-03-24] MEDS: *HR* OxyCODONE/APAP 10/325 TABLET PO PRN ×2 (06:57→21:30)
[2018-03-24] MEDS: Aspirin Enteric Coated 81 MG Tablet PO SCH (09:35)
[2018-03-24] MEDS: Isosorbide MONOnitrate (24 HR) 60 MG TAB.ER.24H PO SCH (09:35)
[2018-03-24] MEDS: Furosemide 40 MG TABLET PO SCH ×3 (09:35→21:21)
[2018-03-24] MEDS: Letrozole 2.5 MG TABLET PO SCH (09:35)
[2018-03-24] MEDS: Cholecalciferol (D-3) 1,000 UNIT TABLET PO SCH ×2 (09:35→21:21)
[2018-03-24] MEDS: Diltiazem CD (24hr) 120 MG CAPSULE PO SCH (09:35)
[2018-03-24] MEDS: ALPRAZolam 1 MG TABLET PO PRN (09:35)
[2018-03-24] MEDS: hydrALAZINE 25 MG TABLET PO SCH ×2 (09:35→15:27)
[2018-03-24] MEDS: Lactulose Oral Soln 20 GM/30 ML UDC PO SCH ×3 (09:36→21:21)
[2018-03-24] MEDS: Insulin NPH/REG 70/30 100 UNIT/ML (x5UNIT) SQ SCH (09:48)
--- NOTE | 2018-03-24 10:27 | Internal Med Progress Note ---
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 Patient was admitted for rehabilitation due to deconditioning secondary to her surgery. Patient's recovery at [facility] was uneventful. Patient denies any current discomforts but states that when she does have pain that her pain is well managed with current medications. Patient has a DANGELO drain to the right lower quadrant that has minimal amount of serosanguineous drainage. Colostomy to left lower quadrant appears healthy. Patient has several skin to have wound type surgical incisions secondary from her laparoscopic surgery, which all appear healthy with pedro in place. Physical therapy evaluation pending with recommendations. We will continue with current plan of care. We check her cbc in am as she has hx of anemia. will also check iron profile (2) Congestive heart failure Current visit: No Status: Chronic No acute issues. Patient denies any dyspnea or chest palpitations. Lungs are clear throughout. We will continue his current medications check electrolytes and magnesium level Qualifiers: Heart failure type: unspecified Heart failure chronicity: chronic Qualified Code(s): I50.9 - Heart failure, unspecified (3) Diabetes Current visit: No Status: Chronic No acute issues. We will continue to cover patient with sliding scale insulin and continue on current medications. Qualifiers: Diabetes mellitus type: type 2 Diabetes mellitus fci insulin use: with fci use Diabetes mellitus complication status: with other specified complication Qualified Code(s): E11.69 - Type 2 diabetes mellitus with other specified complication; Z79.4 - group home (current) use of insulin; Z79.4 - adjunct faculty for medical terminology (current) use of insulin; Z79.4 - adjunct faculty for medical terminology (current) use of insulin; Z79.4 - adjunct faculty for medical terminology (current) use of insulin Interval hx Ms. Crump is a 82 year old female , who was admitted to an [facility] and diagnosed with a rectal vaginal fistula. Patient was surgically treated with a sigmoid resection with ostomy and lysis of adhesions on 03/16 for her colovaginal fistula. Patient had an uneventful recovery during her stay there and was transferred this facility for further rehabilitation due to deconditioning. Patient continues to have a DANGELO drain to the right lower quadrant of abdomen w hich continues to have a minimal amount of serosanguineous type drainage received. Patient has a colostomy to the left lower quadrant of abdomen which currently has a small amount of brown loose stool. Stoma appears healthy. Patient states that her pain has been well tolerated with current pain m edications. Patient denies any discomforts or shortness of breath at this time. No CP. She did not sleep well and feels very anxious today. She is eating fair . Allergy/AdvReac Type Severity Reaction Status Date / Time adhesive tape Allergy Blister Verified 03/02/18 07:24 hydrocodone [From [place]] Allergy See Verified 03/02/18 07:24 Comments iron Allergy Hives Verified 03/02/18 07:24 latex Allergy Blister Verified 03/02/18 07:24 Penicillins Allergy NAUSEA,SWEL Verified 03/02/18 07:24 LING zinc Allergy Blister Verified 03/02/18 07:24 Sulfa (Sulfonamide AdvReac Nausea Verified 03/02/18 07:24 Antibiotics) EXAM General appearance: Present: A&O X 3, anxious talkative - Head Head exam: Present: atraumatic, normocephalic - Eye Eye exam: Present: PERRL, conjuntiva pink, sclera anicteric Pupils: Present: PERRL - Respiratory Respiratory exam: Present: CTAB. Absent: accessory muscle use, rales, rhonchi, wheezes - Cardiovascular Cardiovascular exam: Present: RRR, +S1, +S2. Absent: diastolic murmur, gallop, rubs, systolic murmur - GI/Abdominal GI/Abdominal exam: Present: normal bowel sounds, soft, no peritoneal signs. Absent: distended, tenderness Abdomin soft, nontender, nondistended with BS all quads. Patient has a DANGELO drain to the right lower quadrant with a minimal amount of serosanguineous drainage received. Insertion site appears healthy. Patient has a colostomy to the left lower quadrant of abdomen with minimal amount of loose stool. Stoma appears he althy patient has 3 stab wounds with pedro in place from her laparoscopic surgery, all appear healthy and intact - Extremities Exam Extremities exam: Present: warm, radial pulses palpable and symmetrical. Absent: calf tenderness, cyanotic, pedal edema - Neurological Exam Neurological exam: Present: CN II-XII intact, oriented X3, no focal deficits. - Skin Skin exam: Present: dry, intact - Constitutional Vitals: Temp Pulse Resp BP Pulse Ox 97.0 F L 75 16 124/64 97 03/24/18 07:00 03/24/18 07:00 03/24/18 07:00 03/24/18 07:00 03/24/18 07:00 General appearance: Present: A&O X 3, pleasant Internal Medicine: Result - Labs CBC & Chem 7: 03/23/18 05:35 - ABG Interpretation ABG results: PT/INR, D-dimer PT 13.4 Seconds (9.4-12.1) H 03/23/18 05:35 Consult Discharge Plan - Plan Referrals: Unassigned,Provider [Primary Care Provider] -
[2018-03-24] MEDS: Insulin NPH/REG 70/30 300 UNIT/3 ML VIAL SQ SCH (16:58)
[2018-03-24 17:01] LABS: Bilirubin,Urine Negative (Negative); Blood,Urine Large (Negative); Clarity,Urine Cloudy (Clear); Color,Urine Pink (Yellow); Glucose,Urine (UA) Normal (Normal); Ketones,Urine Negative (Negative); Leukocyte Esterase,Urine Small (Negative); Nitrite,Urine Negative (Negative); PH,Urine 6.5 pH Units (5.0-8.0); Protein,Urine >=300 mg/dL (Neg-Trace); Urobilinogen,Urine Normal (Normal)
[2018-03-24 17:06] LABS: Bacteria,Urine Many per hpf (None-Few); RBC,Urine TNTC per hpf (0-3); WBC,Urine TNTC per hpf (0-3)
[2018-03-24] MEDS: Ascorbic Acid 500 MG TABLET PO SCH (21:21)
[2018-03-25 05:12] LABS: Hematocrit 25.6 % (35.3-44.9); Hemoglobin 8.1 g/dL (11.5-15.4); Mean Corpuscular HGB Conc 31.6 g/dL (31.6-35.5); Mean Corpuscular Hemoglobin 27.5 pg (28.0-33.3); Mean Corpuscular Volume 86.8 fL (83.0-100.0); Mean Platelet Volume 9.2 fL (9.4-12.4); Platelet Count 343 K/mcL (140-400); Red Blood Count 2.95 M/mcL (3.82-4.97); Red Cell Distribution Width 16.2 % (11.5-14.5)
[2018-03-25 05:29] LABS: BUN/Creatinine Ratio 10 (6-26); Blood Urea Nitrogen 18 mg/dL (8-23); Calcium 8.7 mg/dL (8.6-10.3); Carbon Dioxide 28 mEq/L (23-29); Chloride 95 mEq/L (98-107); Glucose 117 mg/dL (70-105); Magnesium 2.1 mg/dL (1.6-2.6); Osmolality,Calculated 269 (280-300); Sodium 128 mEq/L (136-145); eGFR For Non-African Americans 27 (> 60)
[2018-03-25 06:01] LABS: Thyroid Stimulating Hormone 4.036 mcIU/mL (0.340-5.600)
[2018-03-25] MEDS: *HR* Heparin 5,000 UNIT/ML VIAL SQ SCH ×2 (06:02→16:55)
[2018-03-25] MEDS: Aspirin Enteric Coated 81 MG Tablet PO SCH (09:03)
[2018-03-25] MEDS: Insulin NPH/REG 70/30 100 UNIT/ML (x5UNIT) SQ SCH (09:03)
[2018-03-25] MEDS: Isosorbide MONOnitrate (24 HR) 60 MG TAB.ER.24H PO SCH (09:04)
[2018-03-25] MEDS: Diltiazem CD (24hr) 120 MG CAPSULE PO SCH (09:04)
[2018-03-25] MEDS: Cholecalciferol (D-3) 1,000 UNIT TABLET PO SCH ×2 (09:04→20:28)
[2018-03-25] MEDS: Furosemide 40 MG TABLET PO SCH ×3 (09:04→20:29)
[2018-03-25] MEDS: ALPRAZolam 1 MG TABLET PO PRN ×2 (09:04→23:05)
[2018-03-25] MEDS: hydrALAZINE 25 MG TABLET PO SCH ×4 (09:04→23:06)
[2018-03-25] MEDS: Lactulose Oral Soln 20 GM/30 ML UDC PO SCH ×3 (09:04→20:29)
[2018-03-25] MEDS: Ascorbic Acid 500 MG TABLET PO SCH ×2 (09:04→20:28)
[2018-03-25] MEDS: Letrozole 2.5 MG TABLET PO SCH (09:04)
[2018-03-25] MEDS: *HR* OxyCODONE/APAP 10/325 TABLET PO PRN ×3 (09:13→23:05)
--- NOTE | 2018-03-25 12:34 | Internal Med Progress Note ---
Addendum entered and electronically signed by Salvatore Roberts MD 03/25/18 14:44: No acute issues. Discussed her Ross and other catheters, various drains. She would like to get her Ross out but I deferred to Dr. Shoemaker. Patient has no complaint of chest discomfort, dyspnea, orthopnea, palpitations, nausea or vomiting, constipation or diarrhea, other changes in bowel habits, difficulty with urination, rash or itching, or other new complaints, except as mentioned above. Review of systems is otherwise negative. I discussed management of her care with nursing staff. Examination: (Except as mentioned above): General: In no apparent distress. Alert and oriented 3. Nondiaphoretic. Head: Atraumatic and normocephalic. Respiratory: No use of accessory muscles. Lungs are clear throughout. Normal airflow. Cardiovascular: Regular rate and rhythm without murmur appreciated. Abdomen: Bowel sounds are normal. No hepatosplenomegaly mass or tenderness appreciated. Obese and therefore difficult to palpate deeply. Extremities: No cyanosis clubbing or edema. Skin: Warm and non-diaphoretic with no new lesions noted. Original Note: Date of Encounter: 03/25/18 Time of Encounter: 12:32 - Assessment and plan (1) H/O resection of large bowel Current Visit: Yes Status: Acute Assessment and plan: No acute issues. Abdomen remains soft with bowel sounds all quadrants. Stool output per colostomy continues with loose stool. Stoma appears healthy. Right lower quadrant DANGELO drain with only scant drainage received. We will have nursing check on follow-up visits for surgeons. Patient remains afebrile. Patient progressing well with physical therapy and will continue with current plan of care (2) Congestive heart failure Current Visit: No Status: Chronic Assessment and plan: No acute issues during her stay at this facility. Lungs remain clear. Respiratory effort remains relaxed with no complaints of dyspnea. We will continue with current medications and plan a care Qualifiers: Heart failure type: unspecified Heart failure chronicity: chronic Qualified Code(s): I50.9 - Heart failure, unspecified (3) Diabetes Current Visit: No Status: Chronic Assessment and plan: Patients glucose has been fairly well-controlled during her stay at this facility. We will continue with current coverage. Qualifiers: Diabetes mellitus type: type 2 Diabetes mellitus halfway insulin use: with insurance sales specialist use Diabetes mellitus complication status: with other specified complication Qualified Code(s): E11.69 - Type 2 diabetes mellitus with other specified complication; Z79.4 - detention (current) use of insulin; Z79.4 - yardage control operator forming (current) use of insulin; Z79.4 - detention (current) use of insulin; Z79.4 - yardage control operator forming (current) use of insulin - Time Spent With Patient less than 15 minutes - Subjective Interval history: Patient appears relaxed and currently denies any discomforts or shortness of breath. Patient stating that she is anxious to have her Ross catheter removed. Current plan of care was explained at length to patient along with her need to follow up with her surgeons for those decisions to be made. Patient states that she feels comfortable with the colostomy and has been participating in his care. Denies any fever or chills. States that she feels physical therapy has been progressing well. Patient states that she has a short-term goal obtaining a day pass to attend Thanksgiving with family. - Constitutional Vitals: Temp Pulse Resp BP Pulse Ox 98.6 F 75 16 122/57 93 03/25/18 09:00 03/25/18 09:00 03/25/18 09:00 03/25/18 09:00 03/25/18 09:00 General appearance: Present: A&O X 3, pleasant - Head Head exam: Present: atraumatic, normocephalic - Eye Eye exam: Present: PERRL, conjuntiva pink, sclera anicteric Pupils: Present: PERRL - Neck Neck exam general surgery: Present: supple, trachea midline. Absent: lymphadenopathy - Respiratory Respiratory exam: Present: CTAB. Absent: accessory muscle use, rales, rhonchi, wheezes - Cardiovascular Cardiovascular exam: Present: RRR, +S1, +S2. Absent: diastolic murmur, gallop, rubs, systolic murmur - GI/Abdominal GI/Abdominal exam: Present: normal bowel sounds, soft, no peritoneal signs. Absent: distended, tenderness Additional comments: Abdomen remains soft and nondistended with bowel sounds heard all quadrants. Left lower quadrant colostomy with appliance intact with brown loose stool received. Stoma appears healthy. Right lower quadrant with DANGELO drain with scant serosanguineous drainage received. Insertion site appears healthy. Surgical stab wounds from laparotomy. Healing well. - Additional comments: Ross catheter remains in place with bilateral ureter stents intact to Ross drainage. Urine output has cleared patient currently is clear yellow - Extremities Exam Extremities exam: Present: warm, radial pulses palpable and symmetrical. Absen t: calf tenderness, cyanotic, pedal edema - Neurological Exam Neurological exam: Present: CN II-XII intact, oriented X3, no focal deficits. Absent: pronater drift, facial droop, speech deficit - Skin Skin exam: Present: dry, intact Internal Medicine: Result - Labs CBC & Chem 7: 03/25/18 04:43 03/25/18 04:43 Labs: Short CBC 03/25/18 Range/Units 04:43 WBC 5.9 (4.3-11.1) K/mcL Hgb 8.1 L (11.5-15.4) g/dL Hct 25.6 L (35.3-44.9) % Plt Count 343 (140-400) K/mcL BMP 03/25/18 04:43 Sodium 128 L Potassium 5.0 Chloride 95 L Carbon Dioxide 28 BUN 18 Creatinine 1.82 H Glucose 117 H Calcium 8.7 Urine 03/24/18 Range/Units 14:18 Urine Color [place] (Yellow) Urine Clarity Cloudy A (Clear) Urine pH 6.5 (5.0-8.0) pH Units Ur Specific [place] 1.020 (1.010-1.025) Urine Protein >=300 H (Neg-Trace) mg/dL Urine Glucose (UA) Normal (Normal) mg/dL - ABG Interpretation ABG results: PT/INR, D-dimer PT 13.4 Seconds (9.4-12.1) H 03/23/18 05:35 Consult Discharge Plan - Plan Referrals: Unassigned,Provider [Primary Care Provider] -
[2018-03-25] MEDS: Insulin NPH/REG 70/30 300 UNIT/3 ML VIAL SQ SCH (16:57)
[2018-03-25 18:28] LABS: Iron < 10 mcg/dL (50-170); Transferrin 140 mg/dL (203-362)
[2018-03-26] MEDS: *HR* Heparin 5,000 UNIT/ML VIAL SQ SCH ×2 (06:07→17:53)
[2018-03-26 06:22] LABS: Basophils % 0.4 %; Eosinophils # 0.3 K/mcL (0.0-0.6); Eosinophils % 4.5 %; Hemoglobin 8.3 g/dL (11.5-15.4); Immature Granulocytes % 0.5 % (0-4); Lymphocytes # 0.6 K/mcL (0.6-4.6); Lymphocytes % 8.5 %; Mean Corpuscular HGB Conc 31.9 g/dL (31.6-35.5); Mean Corpuscular Hemoglobin 27.3 pg (28.0-33.3); Mean Corpuscular Volume 85.5 fL (83.0-100.0); Mean Platelet Volume 9.1 fL (9.4-12.4); Monocytes # 0.6 K/mcL (0.0-1.3); Monocytes % 7.8 %; Neutrophils # 5.7 K/mcL (1.6-8.9); Platelet Count 377 K/mcL (140-400); Red Blood Count 3.04 M/mcL (3.82-4.97); Segmented Neutrophils % 78.3 %
[2018-03-26 07:14] LABS: Calcium 8.8 mg/dL (8.6-10.3); Potassium 4.7 mEq/L (3.5-5.1)
[2018-03-26] MEDS: Ascorbic Acid 500 MG TABLET PO SCH ×2 (10:13→20:31)
[2018-03-26] MEDS: Aspirin Enteric Coated 81 MG Tablet PO SCH (10:13)
[2018-03-26] MEDS: Diltiazem CD (24hr) 120 MG CAPSULE PO SCH (10:13)
[2018-03-26] MEDS: Lactulose Oral Soln 20 GM/30 ML UDC PO SCH ×3 (10:13→20:36)
[2018-03-26] MEDS: Letrozole 2.5 MG TABLET PO SCH (10:13)
[2018-03-26] MEDS: ALPRAZolam 1 MG TABLET PO PRN (10:14)
[2018-03-26] MEDS: *HR* OxyCODONE/APAP 10/325 TABLET PO PRN ×2 (10:14→17:54)
[2018-03-26] MEDS: Furosemide 40 MG TABLET PO SCH ×3 (10:14→20:35)
[2018-03-26] MEDS: Cholecalciferol (D-3) 1,000 UNIT TABLET PO SCH ×2 (10:14→20:33)
[2018-03-26] MEDS: Isosorbide MONOnitrate (24 HR) 60 MG TAB.ER.24H PO SCH (10:14)
[2018-03-26] MEDS: hydrALAZINE 25 MG TABLET PO SCH ×3 (10:15→23:51)
[2018-03-26] MEDS: Insulin NPH/REG 70/30 100 UNIT/ML (x5UNIT) SQ SCH (10:17)
[2018-03-26] MEDS: Insulin NPH/REG 70/30 300 UNIT/3 ML VIAL SQ SCH (17:53)
[2018-03-27] MEDS: *HR* OxyCODONE/APAP 10/325 TABLET PO PRN (03:34)
[2018-03-27] MEDS: ALPRAZolam 1 MG TABLET PO PRN (03:34)
[2018-03-27] MEDS: *HR* Heparin 5,000 UNIT/ML VIAL SQ SCH ×3 (05:45→18:39)
[2018-03-27] MEDS: *HR* OxyCODONE/APAP 5/325 TABLET PO PRN (09:53)
[2018-03-27] MEDS: Furosemide 40 MG TABLET PO SCH ×3 (09:54→17:33)
[2018-03-27] MEDS: hydrALAZINE 25 MG TABLET PO SCH ×3 (09:54→23:35)
[2018-03-27] MEDS: Letrozole 2.5 MG TABLET PO SCH (09:54)
[2018-03-27] MEDS: Diltiazem CD (24hr) 120 MG CAPSULE PO SCH (09:54)
[2018-03-27] MEDS: Ascorbic Acid 500 MG TABLET PO SCH ×2 (09:54→19:48)
[2018-03-27] MEDS: Cholecalciferol (D-3) 1,000 UNIT TABLET PO SCH ×2 (09:54→19:49)
[2018-03-27] MEDS: Isosorbide MONOnitrate (24 HR) 60 MG TAB.ER.24H PO SCH (09:54)
[2018-03-27] MEDS: Lactulose Oral Soln 20 GM/30 ML UDC PO SCH ×3 (09:55→19:55)
[2018-03-27] MEDS: Aspirin Enteric Coated 81 MG Tablet PO SCH (09:55)
[2018-03-27] MEDS: Insulin NPH/REG 70/30 100 UNIT/ML (x5UNIT) SQ SCH (10:21)
--- NOTE | 2018-03-27 11:31 | Internal Med Progress Note ---
Addendum entered and electronically signed by Salvatore Roberts MD 03/28/18 08:42: Multiple attempts to see patient were unsuccessful as she was in physical therapy or with other providers. Original Note: Date of Encounter: 03/26/18 Time of Encounter: 11:29 - Assessment and plan (1) H/O resection of large bowel Current Visit: Yes Status: Acute Assessment and plan: Follow-up with surgeon as scheduled. Colostomy producing normal bowel movements. (2) Congestive heart failure Current Visit: Yes Status: Chronic Assessment and plan: Controlled. Monitor for decompensation. Follow labs. Continue current medication. Qualifiers: Heart failure type: unspecified Heart failure chronicity: chronic Qualified Code(s): I50.9 - Heart failure, unspecified (3) Diabetes Current Visit: Yes Status: Chronic Assessment and plan: Controlled with current medication. Monitor fingerstick blood sugars. Will adjust medicines as necessary. 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 Avoid nephrotoxic agents. Qualifiers: Chronic kidney disease stage: stage 4 (severe) Qualified Code(s): N18.4 - Chronic kidney disease, stage 4 (severe) - Time Spent With Patient less than 15 minutes - Subjective Interval history: Participating well with therapy. Denies any complaints at this time. Denies fever, chills, nausea vomiting or diarrhea. Denies chest pain or shortness of breath. Maintaining appetite and hydration. Patient has colostomy producing bowel movements. - Constitutional Vitals: Temp Pulse Resp BP Pulse Ox 97.9 F 71 18 123/56 92 03/27/18 07:18 03/27/18 07:18 03/27/18 07:18 03/27/18 07:18 03/27/18 07:18 General appearance: Present: cooperative, A&O X 3, pleasant, no acute distress, answers questions appropriately - Head Head exam: Present: atraumatic, normocephalic - Eye Eye exam: Present: PERRL, conjuntiva pink, sclera anicteric Pupils: Present: PERRL - Neck Neck exam general surgery: Present: supple, trachea midline. Absent: lymphaden opathy - Respiratory Respiratory exam: Present: CTAB. Absent: accessory muscle use, rales, rhonchi, wheezes - Cardiovascular Cardiovascular exam: Present: RRR, +S1, +S2. Absent: diastolic murmur, gallop, rubs, systolic murmur - GI/Abdominal GI/Abdominal exam: Present: normal bowel sounds, soft, no peritoneal signs. Absent: distended, tenderness - Extremities Exam Extremities exam: Present: warm, radial pulses palpable and symmetrical. A bsent: calf tenderness, cyanotic, pedal edema - Neurological Exam Neurological exam: Present: CN II-XII intact, oriented X3, no focal deficits. Absent: pronater drift, facial droop, speech deficit - Skin Skin exam: Present: dry, intact Internal Medicine: Result - Labs CBC & Chem 7: 03/26/18 06:15 03/26/18 06:15 - ABG Interpretation ABG results: PT/INR, D-dimer PT 13.4 Seconds (9.4-12.1) H 03/23/18 05:35 Consult Discharge Plan - Plan Referrals: Unassigned,Provider [Primary Care Provider] -
--- NOTE | 2018-03-27 11:35 | Internal Med Progress Note ---
Addendum entered and electronically signed by Salvatore Roberts MD 03/28/18 08:43: I have personally performed a face to face evaluation on this patient. I have r eviewed and agree with the care plan. History and Exam by me shows: The patient was evaluated by me yesterday but the note was not complete. This documentation is being completed today for that reason. Patient is concerned about getting her catheter out and I deferred to urology, currently scheduled for April. Her states this appointment will be changed to next week. Patient cries because she is concerned about the discomfort that she has related to multiple tubes, etc. She feels that she is receiving adequate nursing and medical care. Has appointment with surgeon this afternoon. She is a bit concerned because she had one episode of hematuria and I told her we would follow. Discussed care with other providers and/or nursing. Patient has no complaint of chest discomfort, dyspnea, orthopnea, palpitations, nausea or vomiting, constipation or diarrhea, other changes in bowel habits, difficulty with urination, rash or itching, or other new complaints, except as mentioned above. Review of systems is otherwise negative. Examination: (Except as mentioned above): General: In no apparent distress. Alert and oriented 3. Nondiaphoretic. Head: Atraumatic and normocephalic. Respiratory: No use of accessory muscles. Lungs are clear throughout. Normal airflow. Cardiovascular: Regular rate and rhythm without murmur appreciated. Abdomen: Bowel sounds are normal. No hepatosplenomegaly mass or tenderness appreciated. Obese and therefore difficult to palpate deeply. Multiple tubes and ostomy as before. No signs of infection or breakdown. Extremities: No cyanosis clubbing or edema. Skin: Warm and non-diaphoretic with no new lesions noted. Original Note: Date of Encounter: 03/27/18 Time of Encounter: 11:32 - Assessment and plan (1) H/O resection of large bowel Current Visit: Yes Status: Acute Assessment and plan: Follow-up with surgeon as scheduled. Colostomy producing normal bowel movements. (2) Congestive heart failure Current Visit: Yes Status: Chronic Assessment and plan: Controlled. Monitor for decompensation. Follow labs. Continue current med ication. Qualifiers: Heart failure type: unspecified Heart failure chronicity: chronic Qualified Code(s): I50.9 - Heart failure, unspecified (3) Diabetes Current Visit: Yes Status: Chronic Assessment and plan: Controlled with current medication. Monitor fingerstick blood sugars. Will adjust medicines as necessary. Qualifiers: Diabetes mellitus type: type 2 Diabetes mellitus ocean transportation intermediary insulin use: with assisted use Diabetes mellitus complication status: with other specified complication Qualified Code(s): E11.69 - Type 2 diabetes mellitus with other specified complication; Z79.4 - group home (current) use of insulin; Z79.4 - group home (current) use of insulin; Z79.4 - group home (current) use of insulin; Z79.4 - remote computer terminal operator (current) use of insulin (4) CKD (chronic kidney disease) Current Visit: Yes Status: Chronic Assessment and plan: Monitor labs. Avoid nephrotoxic agents. Qualifiers: Chronic kidney disease stage: stage 4 (severe) Qualified Code(s): N18.4 - Chronic kidney disease, stage 4 (severe) - Time Spent With Patient less than 15 minutes - Subjective Interval history: Participating well with therapy. Complains of burning at catheter site. Denies fever, chills, nausea vomiting or diarrhea. Denies chest pain or shortness of breath. Maintaining appetite and hydration. Patient has colostomy producing bowel movements. Scheduled to see Dr. Blackburn and Kevin today. Ross catheter instructed to leave and until follow up with urology. DANGELO drain continu es to have small amount of output. - Constitutional Vitals: Temp Pulse Resp BP Pulse Ox 97.9 F 71 18 123/56 92 03/27/18 07:18 03/27/18 07:18 03/27/18 07:18 03/27/18 07:18 03/27/18 07:18 General appearance: Present: cooperative, A&O X 3, pleasant, no acute distress, answers questions appropriately - Head Head exam: Present: atraumatic, normocephalic - Eye Eye exam: Present: PERRL, conjuntiva pink, sclera anicteric Pupils: Present: PERRL - Neck Neck exam general surgery: Present: supple, trachea midline. Absent: lymphadenopathy - Respiratory Respiratory exam: Present: CTAB. Absent: accessory muscle use, rales, rhonchi, wheezes - Cardiovascular Cardiovascular exam: Present: RRR, +S1, +S2. Absent: diastolic murmur, gallop, rubs, systolic murmur - GI/Abdominal GI/Abdominal exam: Present: normal bowel sounds, soft, no peritoneal signs. Abs ent: distended, tenderness - Extremities Exam Extremities exam: Present: warm, radial pulses palpable and symmetrical. Absent: calf tenderness, cyanotic, pedal edema - Incison Comments: DANGELO drain continues to drain. Site nonindurated. - Neurological Exam Neurological exam: Present: CN II-XII intact, oriented X3, no focal deficits. Absent: pronater drift, facial droop, speech deficit - Skin Skin exam: Present: dry, intact Internal Medicine: Result - Labs CBC & Chem 7: 03/26/18 06:15 03/26/18 06:15 - ABG Interpretation ABG results: PT/INR, D-dimer PT 13.4 Seconds (9.4-12.1) H 03/23/18 05:35 Consult Discharge Plan - Plan Referrals: Unassigned,Provider [Primary Care Provider] -
[2018-03-27] MEDS: Insulin NPH/REG 70/30 300 UNIT/3 ML VIAL SQ SCH (17:59)
[2018-03-27 19:10] LABS: INR 1.1
[2018-03-28] MEDS: *HR* OxyCODONE/APAP 10/325 TABLET PO PRN ×2 (05:24→20:44)
[2018-03-28 07:35] LABS: Basophils % 0.3 %; Eosinophils # 0.3 K/mcL (0.0-0.6); Eosinophils % 5.1 %; Hematocrit 24.1 % (35.3-44.9); Hemoglobin 7.8 g/dL (11.5-15.4); Immature Granulocytes % 0.5 % (0-4); Lymphocytes # 0.7 K/mcL (0.6-4.6); Lymphocytes % 11.1 %; Mean Corpuscular HGB Conc 32.4 g/dL (31.6-35.5); Mean Corpuscular Hemoglobin 27.8 pg (28.0-33.3); Mean Corpuscular Volume 85.8 fL (83.0-100.0); Monocytes # 0.5 K/mcL (0.0-1.3); Monocytes % 7.9 %; Neutrophils # 4.8 K/mcL (1.6-8.9); Platelet Count 410 K/mcL (140-400); Red Blood Count 2.81 M/mcL (3.82-4.97); Red Cell Distribution Width 16.1 % (11.5-14.5); Segmented Neutrophils % 75.1 %
[2018-03-28] MEDS: Diltiazem CD (24hr) 120 MG CAPSULE PO SCH (08:26)
[2018-03-28] MEDS: Ascorbic Acid 500 MG TABLET PO SCH ×2 (08:26→20:39)
[2018-03-28] MEDS: Furosemide 40 MG TABLET PO SCH ×3 (08:26→20:38)
[2018-03-28] MEDS: Aspirin Enteric Coated 81 MG Tablet PO SCH (08:26)
[2018-03-28] MEDS: Letrozole 2.5 MG TABLET PO SCH (08:26)
[2018-03-28] MEDS: hydrALAZINE 25 MG TABLET PO SCH ×2 (08:26→17:03)
[2018-03-28] MEDS: Isosorbide MONOnitrate (24 HR) 60 MG TAB.ER.24H PO SCH (08:26)
[2018-03-28] MEDS: Cholecalciferol (D-3) 1,000 UNIT TABLET PO SCH ×2 (08:26→20:39)
[2018-03-28] MEDS: Lactulose Oral Soln 20 GM/30 ML UDC PO SCH (08:27)
[2018-03-28] MEDS: Insulin NPH/REG 70/30 100 UNIT/ML (x5UNIT) SQ SCH (08:33)
--- NOTE | 2018-03-28 11:00 | Internal Med Progress Note ---
Addendum entered and electronically signed by Salvatore Roberts MD 03/28/18 11:12: I have personally performed a face to face evaluation on this patient. I have r eviewed and agree with the care plan. History and Exam by me shows: Negro-Stein was discontinued as was her catheter. She had significant vaginal bleeding thereafter which is decreased overnight. No other complaints and doing well with therapy. Discussed care with other providers and/or nursing. Patient has no complaint of chest discomfort, dyspnea, orthopnea, palpitations, nausea or vomiting, constipation or diarrhea, other changes in bowel habits, difficulty with urination, rash or itching, or other new complaints, except as mentioned above. Review of systems is otherwise negative. Examination: (Except as mentioned above): General: In no apparent distress. Alert and oriented 3. Nondiaphoretic. Head: Atraumatic and normocephalic. Respiratory: No use of accessory muscles. Lungs are clear throughout. Normal airflow. Cardiovascular: Regular rate and rhythm without murmur appreciated. Abdomen: Not examined because she was in therapy. Extremities: No cyanosis clubbing or edema. Skin: Warm and non-diaphoretic with no new lesions noted. Original Note: Date of Encounter: 03/28/18 Time of Encounter: 10:58 - Assessment and plan (1) H/O resection of large bowel Current Visit: Yes Status: Acute Assessment and plan: No acute issues. Abdomen remains soft with bowel sounds all quadrants. Stool output per colostomy continues with loose stool. Stoma appears healthy. Patient had follow-up visit with surgeon and had DANGELO drain, Ross catheter and ureter stents removed. Patient remains afebrile. Patient progressing well with physical therapy and will continue with current plan of care (2) Congestive heart failure Current Visit: Yes Status: Chronic Assessment and plan: No acute issues during her stay at this facility. Lungs remain clear. Respiratory effort remains relaxed with no complaints of dyspnea. We will continue with current medications and plan a care Qualifiers: Heart failure type: unspecified Heart failure chronicity: chronic Qualified Code(s): I50.9 - Heart failure, unspecified (3) Diabetes Current Visit: Yes Status: Chronic Assessment and plan: Patients glucose has been fairly well-controlled during her stay at this facility. We will continue with current coverage. Qualifiers: Diabetes mellitus type: type 2 Diabetes mellitus correction insulin use: with superintendent marine oil terminal use Diabetes mellitus complication status: with other specified complication Qualified Code(s): E11.69 - Type 2 diabetes mellitus with other specified complication; Z79.4 - continuous churn buttermaker (current) use of insulin; Z79.4 - detention (current) use of insulin; Z79.4 - continuous churn buttermaker (current) use of insulin; Z79.4 - detention (current) use of insulin - Subjective Interval history: Patient appears relaxed and currently denies any discomforts or shortness of breath. Patient states that she is pleased that her Ross catheter has been removed. Patient states that she feels comfortable with the colostomy and has been participating in his care. Denies any fever or chills. States that she feels physical therapy has been progressing well. - Constitutional Vitals: Temp Pulse Resp BP Pulse Ox 97.8 F 68 16 94/53 94 03/28/18 07:28 03/28/18 07:28 03/28/18 07:28 03/28/18 07:28 03/28/18 07:28 General appearance: Present: cooperative, A&O X 3, pleasant, no acute distress, answers questions appropriately - Head Head exam: Present: atraumatic, normocephalic - Eye Eye exam: Present: PERRL, conjuntiva pink, sclera anicteric Pupils: Present: PERRL - Neck Neck exam general surgery: Present: supple, trachea midline. Absent: lymphadenopathy - Respiratory Respiratory exam: Present: CTAB. Absent: accessory muscle use, rales, rhonchi, wheezes - Cardiovascular Cardiovascular exam: Present: RRR, +S1, +S2. Absent: diastolic murmur, gallop, rubs, systolic murmur - GI/Abdominal GI/Abdominal exam: Present: normal bowel sounds, soft, no peritoneal signs. Absent: distended, tenderness Additional comments: Abdomen remains soft and nondistended. Left lower quadrant colostomy with stoma appearing healthy. Loose brown stool received. Surgical stab wounds from laparoscopic surgery appear ntact and healing well. - Extremities Exam Extremities exam: Present: warm, radial pulses palpable and symmetrical. Absent: calf tenderness, cyanotic, pedal edema - Neurological Exam Neurological exam: Present: CN II-XII intact, oriented X3, no focal deficits. Absent: pronater drift, facial droop, speech deficit - Skin Skin exam: Present: dry, intact Internal Medicine: Result - Labs CBC & Chem 7: 03/28/18 07:20 03/26/18 06:15 Labs: Short CBC 03/28/18 Range/Units 07:20 WBC 6.4 (4.3-11.1) K/mcL Hgb 7.8 L (11.5-15.4) g/dL Hct 24.1 L (35.3-44.9) % Plt Count 410 H (140-400) K/mcL Neutrophils # 4.8 (1.6-8.9) K/mcL - ABG Interpretation ABG results: PT/INR, D-dimer PT 12.0 Seconds (9.4-12.1) 03/27/18 18:50 Consult Discharge Plan - Plan Referrals: Unassigned,Provider [Primary Care Provider] -
[2018-03-28] MEDS: *HR* Heparin 5,000 UNIT/ML VIAL SQ SCH ×2 (16:51→17:03)
[2018-03-28] MEDS: Insulin NPH/REG 70/30 300 UNIT/3 ML VIAL SQ SCH (17:22)
[2018-03-29] MEDS: hydrALAZINE 25 MG TABLET PO SCH ×3 (02:05→17:18)
[2018-03-29] MEDS: *HR* Heparin 5,000 UNIT/ML VIAL SQ SCH ×2 (06:23→17:18)
[2018-03-29] MEDS: Furosemide 40 MG TABLET PO SCH ×3 (09:47→20:13)
[2018-03-29] MEDS: Ascorbic Acid 500 MG TABLET PO SCH ×2 (09:47→21:58)
[2018-03-29] MEDS: Cholecalciferol (D-3) 1,000 UNIT TABLET PO SCH ×2 (09:47→20:14)
[2018-03-29] MEDS: Aspirin Enteric Coated 81 MG Tablet PO SCH (09:47)
[2018-03-29] MEDS: Letrozole 2.5 MG TABLET PO SCH (09:47)
[2018-03-29] MEDS: Insulin NPH/REG 70/30 100 UNIT/ML (x5UNIT) SQ SCH (09:47)
[2018-03-29] MEDS: Diltiazem CD (24hr) 120 MG CAPSULE PO SCH (09:48)
[2018-03-29] MEDS: Isosorbide MONOnitrate (24 HR) 60 MG TAB.ER.24H PO SCH (09:48)
[2018-03-29] MEDS: *HR* OxyCODONE/APAP 10/325 TABLET PO PRN (11:19)
--- NOTE | 2018-03-29 11:57 | Internal Med Progress Note ---
Date of Encounter: 03/29/18 Time of Encounter: 11:30 - Assessment and plan (1) H/O resection of large bowel Current Visit: Yes Status: Acute Assessment and plan: No acute issues. Patient had follow-up visit with surgeon and had DANGELO drain, Ross catheter and ureter stents removed. Patient progressing well with physical therapy and will continue with current plan of care (2) Congestive heart failure Current Visit: Yes Status: Chronic Assessment and plan: Stable, continue current regimen. Qualifiers: Heart failure type: unspecified Heart failure chronicity: chronic Qualified Code(s): I50.9 - Heart failure, unspecified (3) Diabetes Current Visit: Yes Status: Chronic Assessment and plan: Sugar on the higher side, continue current SSI and will adjust as appropriate. Qualifiers: Diabetes mellitus type: type 2 Diabetes mellitus residential insulin use: with residential use Diabetes mellitus complication status: with other specified complication Qualified Code(s): E11.69 - Type 2 diabetes mellitus with other specified complication; Z79.4 - residential (current) use of insulin; Z79.4 - exterminator (current) use of insulin; Z79.4 - residential (current) use of insulin; Z79.4 - exterminator (current) use of insulin - Time Spent With Patient less than 15 minutes - Subjective Interval history: Sat up for a fairly lengthy period today, so back is hurting a bit, which is responding to the current pain regimen. No other concerns at this time. - Constitutional Vitals: Temp Pulse Resp BP Pulse Ox 97.4 F L 73 18 116/66 98 03/29/18 08:00 03/29/18 08:00 03/29/18 08:00 03/29/18 08:00 03/29/18 08:00 General appearance: Present: cooperative, A&O X 3, pleasant, no acute distress, answers questions appropriately Exam: Gen: A&Ox3, NAD. HEENT: NCAT. Neck: No palpable lymphadenopathy or thyromegaly. CV: RRR, S1S2. 2/6, systolic murmur appreciated. Capillary refill < 2 seconds. Pulm: CTAB. Abd: Colostomy bag intact. (+)BS. ND. Non-specific tenderness, especially around incision site. Skin: No rash. Ext: No pitting edema. Neuro: Generalized weakness, otherwise non-focal. Internal Medicine: Result - Labs CBC & Chem 7: 03/28/18 07:20 03/26/18 06:15 - ABG Interpretation ABG results: PT/INR, D-dimer PT 12.0 Seconds (9.4-12.1) 03/27/18 18:50 Consult Discharge Plan - Plan Referrals: Unassigned,Provider [Primary Care Provider] -
[2018-03-29] MEDS: Insulin NPH/REG 70/30 300 UNIT/3 ML VIAL SQ SCH (17:18)
[2018-03-30] MEDS: hydrALAZINE 25 MG TABLET PO SCH ×4 (00:21→23:41)
[2018-03-30] MEDS: ALPRAZolam 1 MG TABLET PO PRN ×2 (00:21→23:45)
[2018-03-30] MEDS: *HR* OxyCODONE/APAP 5/325 TABLET PO PRN ×2 (03:49→12:47)
[2018-03-30 04:55] LABS: Basophils % 0.8 %; Eosinophils # 0.4 K/mcL (0.0-0.6); Eosinophils % 7.4 %; Hematocrit 25.4 % (35.3-44.9); Hemoglobin 8.1 g/dL (11.5-15.4); Immature Granulocytes % 0.8 % (0-4); Lymphocytes # 0.8 K/mcL (0.6-4.6); Lymphocytes % 14.5 %; Mean Corpuscular HGB Conc 31.9 g/dL (31.6-35.5); Mean Corpuscular Hemoglobin 27.3 pg (28.0-33.3); Mean Corpuscular Volume 85.5 fL (83.0-100.0); Mean Platelet Volume 9.1 fL (9.4-12.4); Monocytes # 0.5 K/mcL (0.0-1.3); Monocytes % 9.2 %; Neutrophils # 3.6 K/mcL (1.6-8.9); Platelet Count 464 K/mcL (140-400); Red Blood Count 2.97 M/mcL (3.82-4.97); Red Cell Distribution Width 16.1 % (11.5-14.5); Segmented Neutrophils % 67.3 %
[2018-03-30 05:17] LABS: Calcium 8.9 mg/dL (8.6-10.3); Potassium 4.3 mEq/L (3.5-5.1)
[2018-03-30] MEDS: *HR* Heparin 5,000 UNIT/ML VIAL SQ SCH ×2 (06:26→17:34)
[2018-03-30] MEDS: Letrozole 2.5 MG TABLET PO SCH (08:18)
[2018-03-30] MEDS: Furosemide 40 MG TABLET PO SCH ×3 (08:18→19:50)
[2018-03-30] MEDS: Isosorbide MONOnitrate (24 HR) 60 MG TAB.ER.24H PO SCH (08:18)
[2018-03-30] MEDS: Diltiazem CD (24hr) 120 MG CAPSULE PO SCH (08:18)
[2018-03-30] MEDS: Cholecalciferol (D-3) 1,000 UNIT TABLET PO SCH ×2 (08:19→19:50)
[2018-03-30] MEDS: Aspirin Enteric Coated 81 MG Tablet PO SCH (08:19)
[2018-03-30] MEDS: Ascorbic Acid 500 MG TABLET PO SCH ×3 (08:20→19:51)
[2018-03-30] MEDS: Insulin NPH/REG 70/30 100 UNIT/ML (x5UNIT) SQ SCH (08:25)
--- NOTE | 2018-03-30 10:03 | Internal Med Progress Note ---
Addendum entered and electronically signed by Bora Arteaga MD 03/30/18 12:48: I have personally performed a face to face evaluation on this patient. I have reviewed and agree with the care plan. Additional notes as below: Reported some vaginal bleeding. Gen: A&Ox3, NAD. HEENT: NCAT. Neck: No palpable lymphadenopathy or thyromegaly. CV: RRR, S1S2. 2/6, systolic murmur appreciated. Capillary refill < 2 seconds. Pulm: CTAB. Abd: Colostomy bag intact. (+)BS. ND. Non-specific tenderness, especially around incision site. Skin: No rash. Ext: No pitting edema. Neuro: Generalized weakness, otherwise non-focal. For issue number 1, we will continue to monitor for bleeding and consider involving gynecology as appropriate. Original Note: Date of Encounter: 03/30/18 Time of Encounter: 10:01 - Assessment and plan (1) H/O resection of large bowel Current Visit: Yes Status: Acute Assessment and plan: No acute issues. Abdomen remains soft with bowel sounds all quadrants. Stoma appears healthy. Patient had follow-up visit with surgeon and had DANGELO drain, Ross catheter and ureter stents removed with patient reportedly having 2 episodes of vaginal bleeding since the removal. Vital signs labs have been stable. Patient's coags are normal. Patient remains afebrile. Patient progressing well with physical therapy and will continue with current plan of care. We will continue to monitor closely due to episodes of bleeding. (2) Congestive heart failure Current Visit: Yes Status: Chronic Assessment and plan: No acute issues during her stay at this facility. Lungs remain clear. Respiratory effort remains relaxed with no complaints of dyspnea. We will continue with current medications and plan a care Qualifiers: Heart failure type: unspecified Heart failure chronicity: chronic Qualified Code(s): I50.9 - Heart failure, unspecified (3) Diabetes Current Visit: Yes Status: Chronic Assessment and plan: Patients glucose has been fairly well-controlled during her stay at this [facility]. We will continue with current coverage. Qualifiers: Diabetes mellitus type: type 2 Diabetes mellitus care home insulin use: with care home use Diabetes mellitus complication status: with other specified complication Qualified Code(s): E11.69 - Type 2 diabetes mellitus with other specified complication; Z79.4 - moth exterminator (current) use of insulin; Z79.4 - moth exterminator (current) use of insulin; Z79.4 - moth exterminator (current) use of insulin; Z79.4 - custodial (current) use of insulin - Time Spent With Patient less than 15 minutes - Subjective Interval history: Patient appears relaxed and currently denies any discomforts or shortness of breath. Patient states that she has had 2 episodes of vaginal bleeding that has occurred after removal of her Ross catheter with ureter stents. Patient denies any abdominal cramping or any other discomforts. - Constitutional Vitals: Temp Pulse Resp BP Pulse Ox 97.8 F 68 16 122/62 96 03/30/18 07:01 03/30/18 07:01 03/30/18 07:01 03/30/18 07:01 03/30/18 07:01 General appearance: Present: cooperative, A&O X 3, pleasant, no acute distress, answers questions appropriately - Head Head exam: Present: atraumatic, normocephalic - Eye Eye exam: Present: PERRL, conjuntiva pink, sclera anicteric Pupils: Present: PERRL - Neck Neck exam general surgery: Present: supple, trachea midline. Absent: lymphadenopathy - Respiratory Respiratory exam: Present: CTAB. Absent: accessory muscle use, rales, rhonchi, wheezes - Cardiovascular Cardiovascular exam: Present: RRR, +S1, +S2. Absent: diastolic murmur, gallop, rubs, systolic murmur - GI/Abdominal GI/Abdominal exam: Present: normal bowel sounds, soft, no peritoneal signs. Absent: distended, tenderness Additional comments: Abdomen remains soft and nondistended. Left lower quadrant colostomy with stoma. Healthy and liquid stool received. - Extremities Exam Extremities exam: Present: warm, radial pulses palpable and symmetrical. Absent: calf tenderness, cyanotic, pedal edema - Neurological Exam Neurological exam: Present: CN II-XII intact, oriented X3, no focal deficits. Absent: pronater drift, facial droop, speech deficit - Skin Skin exam: Present: dry, intact Internal Medicine: Result - Labs CBC & Chem 7: 03/30/18 04:41 03/30/18 04:41 Labs: Short CBC 03/30/18 Range/Units 04:41 WBC 5.3 (4.3-11.1) K/mcL Hgb 8.1 L (11.5-15.4) g/dL Hct 25.4 L (35.3-44.9) % Plt Count 464 H (140-400) K/mcL Neutrophils # 3.6 (1.6-8.9) K/mcL BMP 03/30/18 04:41 Sodium 125 L Potassium 4.3 Chloride 91 L Carbon Dioxide 28 BUN 29 H Creatinine 1.58 H Glucose 138 H Calcium 8.9 - ABG Interpretation ABG results: PT/INR, D-dimer PT 12.0 Seconds (9.4-12.1) 03/27/18 18:50 Consult Discharge Plan - Plan Referrals: Unassigned,Provider [Primary Care Provider] -
[2018-03-30] MEDS: Insulin NPH/REG 70/30 300 UNIT/3 ML VIAL SQ SCH (17:35)
[2018-03-31] MEDS: *HR* OxyCODONE/APAP 10/325 TABLET PO PRN ×3 (03:48→21:29)
[2018-03-31] MEDS: *HR* Heparin 5,000 UNIT/ML VIAL SQ SCH ×2 (06:01→17:28)
[2018-03-31] MEDS: Isosorbide MONOnitrate (24 HR) 60 MG TAB.ER.24H PO SCH (08:57)
[2018-03-31] MEDS: Aspirin Enteric Coated 81 MG Tablet PO SCH (08:57)
[2018-03-31] MEDS: Ascorbic Acid 500 MG TABLET PO SCH ×2 (08:57→21:34)
[2018-03-31] MEDS: Furosemide 40 MG TABLET PO SCH ×3 (08:57→21:35)
[2018-03-31] MEDS: Letrozole 2.5 MG TABLET PO SCH (08:57)
[2018-03-31] MEDS: Diltiazem CD (24hr) 120 MG CAPSULE PO SCH (08:57)
[2018-03-31] MEDS: hydrALAZINE 25 MG TABLET PO SCH ×2 (08:58→17:29)
[2018-03-31] MEDS: Cholecalciferol (D-3) 1,000 UNIT TABLET PO SCH ×2 (08:58→21:27)
[2018-03-31] MEDS: Insulin NPH/REG 70/30 100 UNIT/ML (x5UNIT) SQ SCH (09:01)
--- NOTE | 2018-03-31 12:28 | Internal Med Progress Note ---
Date of Encounter: 03/31/18 Time of Encounter: 12:15 - Assessment and plan (1) H/O resection of large bowel Current Visit: Yes Status: Acute Assessment and plan: No acute issues. Abdomen remains soft with bowel sounds all quadrants. Stoma appears healthy. Patient had follow-up visit with surgeon and had DANGELO drain, Ross catheter and ureter stents removed with patient reportedly having multiple episodes of vaginal bleeding since the removal. Vital signs labs have been stable. Patient's coags are normal. Patient remains afebrile. Patient progressing well with physical therapy and will continue with current plan of care. We will continue to monitor closely and involve gynecology. (2) Congestive heart failure Current Visit: Yes Status: Chronic Assessment and plan: Stable, continue current regimen. Qualifiers: Heart failure type: unspecified Heart failure chronicity: chronic Qualified Code(s): I50.9 - Heart failure, unspecified (3) Diabetes Current Visit: Yes Status: Chronic Assessment and plan: Sugar occasionally on the higher side, continue current SSI and will adjust as appropriate. Qualifiers: Diabetes mellitus type: type 2 Diabetes mellitus oil heaterman insulin use: with oil heaterman use Diabetes mellitus complication status: with other specified complication Qualified Code(s): E11.69 - Type 2 diabetes mellitus with other specified complication; Z79.4 - oil heaterman (current) use of insulin; Z79.4 - oil heaterman (current) use of insulin; Z79.4 - shelter (current) use of insulin; Z79.4 - oil heaterman (current) use of insulin (4) Vaginal bleeding Current Visit: Yes Status: Acute Assessment and plan: Will involve gynecology. (5) Hyponatremia Current Visit: No Status: Acute Assessment and plan: Asymptomatic. Encourage PO intake at this time. Will continue to monitor. - Time Spent With Patient less than 15 minutes - Subjective Interval history: No complaint or concern at this time. Had another period-like bleed this morning, which stopped spontaneously. Had a shower today and felt "really good" afterward. Reading "[employer]." - Constitutional Vitals: Temp Pulse Resp BP Pulse Ox 97.8 F 67 17 172/49 92 03/31/18 08:01 03/31/18 08:01 03/31/18 08:01 03/31/18 08:01 03/31/18 08:01 General appearance: Present: cooperative, A&O X 3, pleasant, no acute distress, answers questions appropriately Exam: Gen: A&Ox3, NAD. HEENT: NCAT. Neck: No palpable lymphadenopathy or thyromegaly. CV: RRR, S1S2. 2/6, systolic murmur appreciated. Capillary refill < 2 seconds. Pulm: CTAB. Abd: Colostomy bag intact. (+)BS. ND. Non-specific tenderness, especially around incision site. Skin: No rash. Ext: No pitting edema. Neuro: Generalized weakness, otherwise non-focal. Internal Medicine: Result - Labs CBC & Chem 7: 03/30/18 04:41 03/30/18 04:41 - ABG Interpretation ABG results: PT/INR, D-dimer PT 12.0 Seconds (9.4-12.1) 03/27/18 18:50 Consult Discharge Plan - Plan Referrals: Unassigned,Provider [Primary Care Provider] -
[2018-03-31] MEDS: Insulin NPH/REG 70/30 300 UNIT/3 ML VIAL SQ SCH (17:30)
[2018-03-31] MEDS: ALPRAZolam 1 MG TABLET PO PRN (21:31)
[2018-04-01] MEDS: *HR* OxyCODONE/APAP 5/325 TABLET PO PRN (00:51)
[2018-04-01] MEDS: hydrALAZINE 25 MG TABLET PO SCH ×4 (00:51→23:39)
[2018-04-01] MEDS: *HR* Heparin 5,000 UNIT/ML VIAL SQ SCH (05:15)
[2018-04-01 05:39] LABS: Basophils % 0.7 %; Eosinophils # 0.5 K/mcL (0.0-0.6); Eosinophils % 8.3 %; Hematocrit 24.3 % (35.3-44.9); Hemoglobin 7.7 g/dL (11.5-15.4); Immature Granulocytes % 1.1 % (0-4); Lymphocytes # 0.7 K/mcL (0.6-4.6); Lymphocytes % 13.7 %; Mean Corpuscular HGB Conc 31.7 g/dL (31.6-35.5); Mean Corpuscular Hemoglobin 27.2 pg (28.0-33.3); Mean Corpuscular Volume 85.9 fL (83.0-100.0); Mean Platelet Volume 9.1 fL (9.4-12.4); Monocytes # 0.5 K/mcL (0.0-1.3); Neutrophils # 3.6 K/mcL (1.6-8.9); Platelet Count 477 K/mcL (140-400); Red Blood Count 2.83 M/mcL (3.82-4.97); Red Cell Distribution Width 16.2 % (11.5-14.5); Segmented Neutrophils % 66.2 %
[2018-04-01 05:53] LABS: Potassium 4.7 mEq/L (3.5-5.1)
[2018-04-01] MEDS: Furosemide 40 MG TABLET PO SCH ×3 (08:35→20:23)
[2018-04-01] MEDS: Aspirin Enteric Coated 81 MG Tablet PO SCH (08:35)
[2018-04-01] MEDS: Cholecalciferol (D-3) 1,000 UNIT TABLET PO SCH ×2 (08:35→20:27)
[2018-04-01] MEDS: Isosorbide MONOnitrate (24 HR) 60 MG TAB.ER.24H PO SCH (08:35)
[2018-04-01] MEDS: ALPRAZolam 1 MG TABLET PO PRN ×2 (08:36→23:38)
[2018-04-01] MEDS: Diltiazem CD (24hr) 120 MG CAPSULE PO SCH (08:36)
[2018-04-01] MEDS: Ascorbic Acid 500 MG TABLET PO SCH ×2 (08:36→20:27)
[2018-04-01] MEDS: Letrozole 2.5 MG TABLET PO SCH (08:36)
[2018-04-01] MEDS: Insulin NPH/REG 70/30 100 UNIT/ML (x5UNIT) SQ SCH (08:37)
--- NOTE | 2018-04-01 12:15 | Internal Med Progress Note ---
Date of Encounter: 04/01/18 Time of Encounter: 11:45 - Assessment and plan (1) H/O resection of large bowel Current Visit: Yes Status: Acute Assessment and plan: No acute issues. Abdomen remains soft with bowel sounds all quadrants. Stoma appears healthy. Patient had follow-up visit with surgeon and had DANGELO drain, Ross catheter and ureter stents removed with patient reportedly having multiple episodes of vaginal bleeding since the removal. Vital signs labs have been stable. Patient's coags are normal. Patient remains afebrile. Patient progressing well with physical therapy and will continue with current plan of care. We will continue to monitor closely and involve gynecology. (2) Congestive heart failure Current Visit: Yes Status: Chronic Assessment and plan: Stable, continue current regimen. Qualifiers: Heart failure type: unspecified Heart failure chronicity: chronic Qualified Code(s): I50.9 - Heart failure, unspecified (3) Diabetes Current Visit: Yes Status: Chronic Assessment and plan: Sugar occasionally on the higher side, continue current SSI and will adjust as appropriate. Qualifiers: Diabetes mellitus type: type 2 Diabetes mellitus truck terminal manager insulin use: with truck terminal manager use Diabetes mellitus complication status: with other specified complication Qualified Code(s): E11.69 - Type 2 diabetes mellitus with other specified complication; Z79.4 - truck terminal manager (current) use of insulin; Z79.4 - truck terminal manager (current) use of insulin; Z79.4 - FDC (current) use of insulin; Z79.4 - truck terminal manager (current) use of insulin (4) Vaginal bleeding Current Visit: Yes Status: Acute Assessment and plan: Will involve gynecology. (5) Hyponatremia Current Visit: No Status: Acute Assessment and plan: Asymptomatic and stable. Encourage PO intake at this time. Will continue to monitor. - Time Spent With Patient less than 15 minutes - Subjective Interval history: Still having vaginal bleeding. Did not sleep well last night, so feeling a bit tired today. No other concerns at this moment. - Constitutional Vitals: Temp Pulse Resp BP Pulse Ox 97.7 F 66 16 137/55 93 04/01/18 07:22 04/01/18 07:22 04/01/18 07:22 04/01/18 07:22 04/01/18 07:22 General appearance: Present: cooperative, A&O X 3, pleasant, no acute distress, answers questions appropriately Exam: Gen: A&Ox3, NAD. HEENT: NCAT. Neck: No palpable lymphadenopathy or thyromegaly. CV: RRR, S1S2. 2/6, systolic murmur appreciated. Capillary refill < 2 seconds. Pulm: CTAB. Abd: Colostomy bag intact. (+)BS. ND. Non-specific tenderness, especially around incision sites. Skin: No rash. Ext: No pitting edema. Neuro: Generalized weakness, otherwise non-focal. Internal Medicine: Result - Labs CBC & Chem 7: 04/01/18 05:05 04/01/18 05:05 Labs: Short CBC 04/01/18 Range/Units 05:05 WBC 5.4 (4.3-11.1) K/mcL Hgb 7.7 L (11.5-15.4) g/dL Hct 24.3 L (35.3-44.9) % Plt Count 477 H (140-400) K/mcL Neutrophils # 3.6 (1.6-8.9) K/mcL BMP 04/01/18 05:05 Sodium 126 L Potassium 4.7 Chloride 92 L Carbon Dioxide 28 BUN 31 H Creatinine 1.67 H Glucose 116 H Calcium 9.0 - ABG Interpretation ABG results: PT/INR, D-dimer PT 12.0 Seconds (9.4-12.1) 03/27/18 18:50 Consult Discharge Plan - Plan Referrals: Unassigned,Provider [Primary Care Provider] -
[2018-04-01] MEDS: *HR* OxyCODONE/APAP 10/325 TABLET PO PRN (16:10)
[2018-04-01] MEDS: Insulin NPH/REG 70/30 300 UNIT/3 ML VIAL SQ SCH (18:40)
[2018-04-02] MEDS: *HR* OxyCODONE/APAP 10/325 TABLET PO PRN ×2 (00:56→22:07)
[2018-04-02] MEDS: *HR* OxyCODONE/APAP 5/325 TABLET PO PRN (05:40)
[2018-04-02 06:40] LABS: Basophils % 0.6 %; Eosinophils # 0.4 K/mcL (0.0-0.6); Eosinophils % 7.5 %; Hematocrit 24.4 % (35.3-44.9); Hemoglobin 7.8 g/dL (11.5-15.4); Immature Granulocytes % 0.8 % (0-4); Lymphocytes # 0.9 K/mcL (0.6-4.6); Lymphocytes % 17.1 %; Mean Corpuscular Hemoglobin 27.6 pg (28.0-33.3); Mean Corpuscular Volume 86.2 fL (83.0-100.0); Monocytes # 0.5 K/mcL (0.0-1.3); Monocytes % 9.8 %; Neutrophils # 3.3 K/mcL (1.6-8.9); Platelet Count 460 K/mcL (140-400); Red Blood Count 2.83 M/mcL (3.82-4.97); Red Cell Distribution Width 16.4 % (11.5-14.5); Segmented Neutrophils % 64.2 %
[2018-04-02 06:55] LABS: Potassium 4.4 mEq/L (3.5-5.1)
[2018-04-02] MEDS: Aspirin Enteric Coated 81 MG Tablet PO SCH (08:49)
[2018-04-02] MEDS: Letrozole 2.5 MG TABLET PO SCH (08:49)
[2018-04-02] MEDS: Cholecalciferol (D-3) 1,000 UNIT TABLET PO SCH ×2 (08:49→22:08)
[2018-04-02] MEDS: Diltiazem CD (24hr) 120 MG CAPSULE PO SCH (08:49)
[2018-04-02] MEDS: Isosorbide MONOnitrate (24 HR) 60 MG TAB.ER.24H PO SCH (08:50)
[2018-04-02] MEDS: Ascorbic Acid 500 MG TABLET PO SCH ×2 (08:50→22:06)
[2018-04-02] MEDS: Furosemide 40 MG TABLET PO SCH ×3 (08:50→22:09)
[2018-04-02] MEDS: hydrALAZINE 25 MG TABLET PO SCH ×3 (08:50→23:58)
[2018-04-02] MEDS: Insulin NPH/REG 70/30 100 UNIT/ML (x5UNIT) SQ SCH (10:24)
--- NOTE | 2018-04-02 11:49 | Internal Med Progress Note ---
Addendum entered and electronically signed by Salvatore Roberts MD 04/02/18 12:00: I have personally performed a face to face evaluation on this patient. I have r eviewed and agree with the care plan. History and Exam by me shows: She still has genitourinary bleeding, especially when she stands up. We discussed this and this seems to be getting better, slowly, over time. She is tired and cold much of the time, but this seems to be stable. She has no other symptoms. Discussed care with other providers and/or nursing. Patient has no complaint of chest discomfort, dyspnea, orthopnea, palpitations, nausea or vomiting, constipation or diarrhea, other changes in bowel habits, difficulty with urination, rash or itching, or other new complaints, except as mentioned above. Review of systems is otherwise negative. Examination: (Except as mentioned above): General: In no apparent distress. Alert and oriented 3. Nondiaphoretic. Head: Atraumatic and normocephalic. Respiratory: No use of accessory muscles. Lungs are clear throughout. Normal airflow. Cardiovascular: Regular rate and rhythm without murmur appreciated. Abdomen: Bowel sounds are normal. No hepatosplenomegaly mass or tenderness appreciated. Obese and therefore difficult to palpate deeply. Wounds seem to be healing well and colostomy seems to be functioning well. Extremities: No cyanosis clubbing or edema. Skin: Warm and non-diaphoretic with no new lesions noted. ACCOUNT SUPPORT ASSOCIATE consult was submitted over the weekend. Hopefully, they can see her today but it is not certain. Will evaluate but I think this is a urological problem more than ACCOUNT SUPPORT ASSOCIATE. Original Note: Date of Encounter: 04/02/18 Time of Encounter: 11:46 - Assessment and plan (1) H/O resection of large bowel Current Visit: Yes Status: Acute Assessment and plan: Follow-up with surgeon as scheduled. Colostomy producing normal bowel movements. incision sites healing. (2) Congestive heart failure Current Visit: Yes Status: Chronic Assessment and plan: Controlled. Monitor for decompensation. Follow labs. Continue current medication. Qualifiers: Heart failure type: unspecified Heart failure chronicity: chronic Qualified Code(s): I50.9 - Heart failure, unspecified (3) Diabetes Current Visit: Yes Status: Chronic Assessment and plan: Controlled with current medication. Monitor fingerstick blood sugars. Will adjust medicines as necessary. 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 Avoid nephrotoxic agents. Qualifiers: Chronic kidney disease stage: stage 4 (severe) Qualified Code(s): N18.4 - Chronic kidney disease, stage 4 (severe) (5) Vaginal bleeding Current Visit: Yes Status: Acute Assessment and plan: ACCOUNT SUPPORT ASSOCIATE consulted. - Time Spent With Patient less than 15 minutes - Subjective Interval history: Participating well with therapy. Complains of sm amt of vaginal bleeding when standing up. consulted ACCOUNT SUPPORT ASSOCIATE. Denies fever, chills, nausea vomiting or diarrhea. Denies chest pain or shortness of breath. Maintaining appetite and hydration. Patient has colostomy producing bowel movements. - Constitutional Vitals: Temp Pulse Resp BP Pulse Ox 97.7 F 81 17 104/62 97 04/02/18 07:28 04/02/18 10:40 04/02/18 07:28 04/02/18 10:40 04/02/18 10:40 General appearance: Present: cooperative, A&O X 3, pleasant, no acute distress, answers questions appropriately - Head Head exam: Present: atraumatic, normocephalic - Eye Eye exam: Present: PERRL, conjuntiva pink, sclera anicteric Pupils: Present: PERRL - Neck Neck exam general surgery: Present: supple, trachea midline. Absent: lymphadenopathy - Respiratory Respiratory exam: Present: CTAB. Absent: accessory muscle use, rales, rhonchi, wheezes - Cardiovascular Cardiovascular exam: Present: RRR, +S1, +S2. Absent: diastolic murmur, gallop, rubs, systolic murmur - GI/Abdominal GI/Abdominal exam: Present: normal bowel sounds, soft, no peritoneal signs. Absent: distended, tenderness - Extremities Exam Extremities exam: Present: warm, radial pulses palpable and symmetrical. Absent: calf tenderness, cyanotic, pedal edema - Incison Comments: small abdominal surgical incisions healing, well approximated. no drainage. - Neurological Exam Neurological exam: Present: CN II-XII intact, oriented X3, no focal deficits. Absent: pronater drift, facial droop, speech deficit - Skin Skin exam: Present: dry, intact Internal Medicine: Result - Labs CBC & Chem 7: 04/02/18 06:25 04/02/18 06:25 Labs: Short CBC 04/02/18 Range/Units 06:25 WBC 5.2 (4.3-11.1) K/mcL Hgb 7.8 L (11.5-15.4) g/dL Hct 24.4 L (35.3-44.9) % Plt Count 460 H (140-400) K/mcL Neutrophils # 3.3 (1.6-8.9) K/mcL BMP 04/02/18 06:25 Sodium 124 L Potassium 4.4 Chloride 90 L Carbon Dioxide 27 BUN 35 H Creatinine 1.64 H Glucose 124 H Calcium 9.0 - ABG Interpretation ABG results: PT/INR, D-dimer PT 12.0 Seconds (9.4-12.1) 03/27/18 18:50 Consult Discharge Plan - Plan Referrals: Unassigned,Provider [Primary Care Provider] -
[2018-04-02] MEDS: Insulin NPH/REG 70/30 300 UNIT/3 ML VIAL SQ SCH (17:21)
[2018-04-03] MEDS: *HR* OxyCODONE/APAP 10/325 TABLET PO PRN (06:03)
[2018-04-03 08:04] VITALS: BP 107/57
[2018-04-03] MEDS: Diltiazem CD (24hr) 120 MG CAPSULE PO SCH (08:05)
[2018-04-03] MEDS: Aspirin Enteric Coated 81 MG Tablet PO SCH (08:05)
[2018-04-03] MEDS: Letrozole 2.5 MG TABLET PO SCH (08:05)
[2018-04-03] MEDS: Cholecalciferol (D-3) 1,000 UNIT TABLET PO SCH (08:05)
[2018-04-03] MEDS: Ascorbic Acid 500 MG TABLET PO SCH (08:06)
[2018-04-03] MEDS: Isosorbide MONOnitrate (24 HR) 60 MG TAB.ER.24H PO SCH (08:06)
[2018-04-03] MEDS: hydrALAZINE 25 MG TABLET PO SCH (08:06)
[2018-04-03] MEDS: Furosemide 40 MG TABLET PO SCH (08:07)
[2018-04-03] MEDS: Insulin NPH/REG 70/30 100 UNIT/ML (x5UNIT) SQ SCH (08:47)
--- NOTE | 2018-04-03 12:00 | Physician Discharge Referral ---
Addendum entered and electronically signed by Salvatore Roberts MD 04/03/18 12:01: Original Note: Home Health/Hosp Referral Info Transfer to: Home Health Provider in Charge Post Discharge: PCP - Diagnosis (1) H/O resection of large bowel Priority: Primary Status: Acute (2) Congestive heart failure Priority: Secondary Status: Chronic (3) Diabetes Priority: Secondary Status: Chronic (4) CKD (chronic kidney disease) Priority: Secondary Status: Chronic (5) Vaginal bleeding Priority: Secondary Status: Acute - Respiratory Orders Smoking Cessation: Smoking cessation has been advised. For more information, call the [place] Tobacco Quit Line at 1-701-QIIN-NOW. - Diet/Nutrition Diet/Nutrition Orders: Mechanical Soft - Activity Activity Orders: Walker - Services Needed Following services are medically necessary services: Nursing, Physical Therapy - Transfer Medications Home Medications: Albuterol Sulfate [Ventolin Hfa] 2 puff IH Q4HR PRN 11/13/17 [History] Aspirin [Lo-Dose Aspirin EC] 81 mg PO DAILY 11/13/17 [History] Atorvastatin [Lipitor] 40 mg PO HS 11/13/17 [History] Carvedilol [Coreg] 6.25 mg PO BID 11/13/17 [History] Cholecalciferol (D-3) [Vitamin D] 2,000 unit PO BID 11/13/17 [History] Insulin Aspart Prot/Insuln Asp [Novolog Mix 70-30 Flexpen Syrn] 12 unit SQ DAILY 11/13/17 [History] Isosorbide MONOnitrate (24 HR) [Imdur] 60 mg PO DAILY 11/13/17 [History] Levothyroxine [Synthroid] 75 mcg PO 0630 11/13/17 [History] Losartan Potassium [Cozaar] 50 mg PO BID 11/13/17 [History] Potassium Chloride [K-Tab ER] 20 meq PO TID 11/13/17 [History] hydrALAZINE [HydrALAZINE] 25 mg PO Q8H 11/13/17 [History] Furosemide [Lasix] 40 mg PO TID 11/27/17 [History] Nitroglycerin [Nitrostat] 0.4 mg SL PER PKG DI PRN 11/27/17 [History] Letrozole [Femara] 2.5 mg PO DAILY #30 tablet 07/27/18 [Rx] Insulin Aspart Prot/Insuln Asp [Novolog Mix 70-30 Flexpen Syrn] 16 unit SQ QPM 01/11/18 [History] Diltiazem CD (24hr) [Cardizem CD] 120 mg PO DAILY #1 cap.er.24h 01/12/18 [Rx] Lactulose 15 mg PO TID 03/02/18 [History] Lidocaine Patch [Lidoderm 5% patch] 1 patch TD Q12H PRN 03/02/18 [History] Oxycodone HCl/Acetaminophen [Percocet 10-325 mg Tablet] 1 tab PO Q6HR PRN 03/02/18 [History] Cyclobenzaprine HCl 5 mg PO HS PRN 03/15/18 [History] Allergies/Adverse Reactions: Allergy/AdvReac Type Severity Reaction Status Date / Time adhesive tape Allergy Blister Verified 03/02/18 07:24 hydrocodone [From [place]] Allergy See Verified 03/02/18 07:24 Comments iron Allergy Hives Verified 03/02/18 07:24 latex Allergy Blister Verified 03/02/18 07:24 Penicillins Allergy NAUSEA,SWEL Verified 03/02/18 07:24 LING zinc Allergy Blister Verified 03/02/18 07:24 Sulfa (Sulfonamide AdvReac Nausea Verified 03/02/18 07:24 Antibiotics) Certification: Further, I certify that my clinical findings support that this patient is homebound (i.e. absences from home require considerable and taxing effort and are for medical reasons or nondenominational services or infrequently or short duration when for other reasons) because: Homebound Reason: Patient requires assistance of a person or device to safely leave home, Post-surgery restriction and or conditions limit ability to leave home, Leaving home requires considerable and taxing effort due to condition Attestation: My signature below is to certify that this patient is under my care and that I, or nurse practitioner, or a physician's grooming assistant working with me, has a [id number] encounter with this patient.
--- NOTE | 2018-04-03 12:03 | Discharge Summary ---
Addendum entered and electronically signed by Salvatore Roberts MD 04/03/18 12:39: I have personally performed a face to face evaluation on this patient. I have r eviewed and agree with the care plan. History and Exam by me shows: Patient is feeling relatively well. She notes no vaginal bleeding until she stands up and then has mild to moderate volume of vaginal bleeding. She continues to be fatigued but this seems better than yesterday. We discussed her anemia at length and the fact that it may take 2-4 weeks for this to return to normal if there is no further blood loss. With ongoing bleeding, she will need to consider that this may take longer. If the vaginal bleeding persists, she is to notify her surgeon. We discussed following up with her surgeons and she is not certain of how soon she is to see them. We discussed that she should have laboratory (4 following hemoglobin and sodium, especially) with her primary care physician in a week or so. She is pleased with her progress and care here. Discussed care with other providers and/or nursing. Patient has no complaint of chest discomfort, dyspnea, orthopnea, palpitations, nausea or vomiting, constipation or diarrhea, other changes in bowel habits, difficulty with urination, rash or itching, or other new complaints, except as mentioned above. Review of systems is otherwise negative. Examination: (Except as mentioned above): General: In no apparent distress. Alert and oriented 3. Nondiaphoretic. Head: Atraumatic and normocephalic. Respiratory: No use of accessory muscles. Lungs are clear throughout. Normal airflow. Cardiovascular: Regular rate and rhythm without murmur appreciated. Abdomen: Bowel sounds are normal. No hepatosplenomegaly mass or tenderness ap preciated. Obese and therefore difficult to palpate deeply. Wounds and colostomy are intact and appear healthy and functioning well. Extremities: No cyanosis clubbing or edema. Skin: Warm and non-diaphoretic with no new lesions noted. All of her questions were answered prior to discharge. Original Note: - NOTES TO OUTPATIENT PROVIDER Notes to Outpatient Provider: follow up Na level. Date of Encounter: 04/03/18 Time of Encounter: 12:01 - Discharge Diagnosis (1) H/O resection of large bowel Priority: Primary Status: Acute Comments: healing, colostomy. f/u with surgeon as scheduled. continue current pain meds. (2) Congestive heart failure Priority: Secondary Status: Chronic Comments: stable with current meds. monitor for decompensation. Qualifiers: Heart failure type: unspecified Heart failure chronicity: chronic Qualified Code(s): I50.9 - Heart failure, unspecified (3) Diabetes Priority: Secondary Status: Chronic Comments: controlled with current meds. monitor FSBS. f/u with PCP. Qualifiers: Diabetes mellitus type: type 2 Diabetes mellitus long-term insulin use: with computer terminal operator use Diabetes mellitus complication status: with other specified complication Qualified Code(s): E11.69 - Type 2 diabetes mellitus with other specified complication; Z79.4 - longterm (current) use of insulin; Z79.4 - longterm (current) use of insulin; Z79.4 - longterm (current) use of insulin; Z79.4 - terminal worker (current) use of insulin (4) CKD (chronic kidney disease) Priority: Secondary Status: Chronic Qualifiers: Chronic kidney disease stage: stage 4 (severe) Qualified Code(s): N18.4 - Chronic kidney disease, stage 4 (severe) (5) Vaginal bleeding Priority: Secondary Status: Acute Comments: follow up with surgeon. Hospital course: Ms. Crump is a 82 year old female discharging to home. s/p bowel resection. able to take care of colostomy by self. going home with . pain con trolled with current meds. denies any other issues at this time. denies fever, chills, NVD. maintaining appetite and hydration. ambulating with walker in hallways 135 ft at SBA. refer to home health PT and nursing. Discharge discussed with: patient, family, nurse, social work - Time Spent with Patient Total time spent providing and/or coordinating discharge services: Less than 30 minutes - Discharge Medications Home Medications: Albuterol Sulfate [Ventolin Hfa] 2 puff IH Q4HR PRN 11/13/17 [History] Aspirin [Lo-Dose Aspirin EC] 81 mg PO DAILY 11/13/17 [History] Atorvastatin [Lipitor] 40 mg PO HS 11/13/17 [History] Carvedilol [Coreg] 6.25 mg PO BID 11/13/17 [History] Cholecalciferol (D-3) [Vitamin D] 2,000 unit PO BID 11/13/17 [History] Insulin Aspart Prot/Insuln Asp [Novolog Mix 70-30 Flexpen Syrn] 12 unit SQ DAILY 11/13/17 [History] Isosorbide MONOnitrate (24 HR) [Imdur] 60 mg PO DAILY 11/13/17 [History] Levothyroxine [Synthroid] 75 mcg PO 0630 11/13/17 [History] Losartan Potassium [Cozaar] 50 mg PO BID 11/13/17 [History] Potassium Chloride [K-Tab ER] 20 meq PO TID 11/13/17 [History] hydrALAZINE [HydrALAZINE] 25 mg PO Q8H 11/13/17 [History] Furosemide [Lasix] 40 mg PO TID 11/27/17 [History] Nitroglycerin [Nitrostat] 0.4 mg SL PER PKG DI PRN 11/27/17 [History] Letrozole [Femara] 2.5 mg PO DAILY #30 tablet 12/01/17 [Rx] Insulin Aspart Prot/Insuln Asp [Novolog Mix 70-30 Flexpen Syrn] 16 unit SQ QPM 01/11/18 [History] Diltiazem CD (24hr) [Cardizem CD] 120 mg PO DAILY #1 cap.er.24h 01/12/18 [Rx] Lactulose 15 mg PO TID 03/02/18 [History] Lidocaine Patch [Lidoderm 5% patch] 1 patch TD Q12H PRN 03/02/18 [History] Oxycodone HCl/Acetaminophen [Percocet 10-325 mg Tablet] 1 tab PO Q6HR PRN 03/02/18 [History] Cyclobenzaprine HCl 5 mg PO HS PRN 03/15/18 [History] Ascorbic Acid [Vitamin C] 250 mg PO BID tablet 04/03/18 [Rx] OxyCODONE/APAP 5/325 [Percocet 5/325 MG] 1 each PO Q8HR PRN 7 Days #20 tablet 04/03/18 [Rx] Allergies/Adverse Reactions: Allergy/AdvReac Type Severity Reaction Status Date / Time adhesive tape Allergy Blister Verified 03/02/18 07:24 hydrocodone [From [place]] Allergy See Verified 03/02/18 07:24 Comments iron Allergy Hives Verified 03/02/18 07:24 latex Allergy Blister Verified 03/02/18 07:24 Penicillins Allergy NAUSEA,SWEL Verified 03/02/18 07:24 LING zinc Allergy Blister Verified 03/02/18 07:24 Sulfa (Sulfonamide AdvReac Nausea Verified 03/02/18 07:24 Antibiotics) Date of admission: 03/22/18 14:36 Primary care physician: Provider Unassigned Consults: 03/22/18 15:44 Consult to Occupational Therapy [CONS] Routine Comment: treat and eval Reason for Consult: deconditioning Does patient have active BEDREST order?: Yes Is patient medically & hemodynamically stable?: No Patient assessed for mobility or mobilized this visit?: No Consult to Physical Therapy [CONS] Routine Comment: treat and eval Reason for Consult: deconditioning Does patient have active BEDREST order?: No Is patient medically & hemodynamically stable?: Yes Patient assessed for mobility or mobilized this visit?: No Consult to Recreational Therapy [CONS] Routine Comment: Consult to Photography Colorist [CONS] Routine Reason for SW Consult: d/c planning 03/22/18 16:00 Consult to Physical Medicine/Rehab [CONS] Routine Reason for Consult: deconditioning s/p Call Completed: No 04/01/18 12:07 Consult to FIELD TECHNICAL SPECIALIST [CONS] Routine Consulting Provider: [employer] Siria Reason for Consult: Vaginal bleeding Call Completed: No Discharging clinician: Salvatore Roberts Anticipated date of discharge: 04/03/18 - Constitutional Vitals: Temp Pulse Resp BP Pulse Ox 97.6 F 68 18 107/57 94 04/03/18 07:53 04/03/18 07:53 04/03/18 07:53 04/03/18 07:53 04/03/18 07:53 General appearance: Present: cooperative, A&O X 3, pleasant, no acute distress, answers questions appropriately - Head Head exam: Present: atraumatic, normocephalic - Eye Eye exam: Present: PERRL, conjuntiva pink, sclera anicteric Pupils: Present: PERRL - Neck Neck exam general surgery: Present: supple, trachea midline. Absent: lymphadenopathy - Respiratory Respiratory exam: Present: CTAB. Absent: accessory muscle use, rales, rhonchi, wheezes - Cardiovascular Cardiovascular exam: Present: RRR, +S1, +S2. Absent: diastolic murmur, gallop, rubs, systolic murmur - GI/Abdominal GI/Abdominal exam: Present: normal bowel sounds, soft, no peritoneal signs. Absent: distended, tenderness - Extremities Exam Extremities exam: Present: warm, radial pulses palpable and symmetrical. Absent: calf tenderness, cyanotic, pedal edema - Neurological Exam Neurological exam: Present: CN II-XII intact, oriented X3, no focal deficits. Absent: pronater drift, facial droop, speech deficit - Skin Skin exam: Present: dry, intact Additional comments: colostomy intact. surgical incisions healing on abdomen. no drainage. - Patient Status Disposition: Home Health Service Condition: Good Functional capacity at discharge: uses cane/walker Overall status at discharge: patient is progressing back to baseline - Discharge Instructions Follow Up With: Unassigned,Provider [Primary Care Provider] - Lefty Blackburn DO [Partnered Physician] - 04/17/18 - Diet and Activity Activity: as per physical therapy Diet: advance to your usual diet
== END 2018-04-03 13:50 | disposition home health service (06) | DRG 949 ==
LOC: INPGRE 03-22 14:36